=== PATIENT | female | born 1965 | race Caucasian/White ===

== ENCOUNTER → 2020-08-26 | Outpatient (CLI) | payer BC ==
[2020-08-26 09:55] VITALS: BP 148/83; PULSE 92; RESP 20; TEMP 97.8
--- NOTE | 2020-08-26 10:13 | P.GSHP ---
History of Present Illness H&P Date: 08/26/20 Chief Complaint: right breast microclacifications of concern UTANJA Miles is a 53 year old white female seen in consultation for Dr. Braxton regarding a radiographic abnormality of the right breast. She underwent a bilateral screening mammogram on [id number] for which additional views of the right breast [place] [id number]. These reveal a subtle group of microcalcifications in the upper-outer quadrant of the right breast for which stereo biopsy was recommended. She does not feel any lumps masses or nodules in her breast. She is not complaining of the nipple discharge or skin changes. She is not complaining of any trauma or infection in the breast. She has never had any surgery of the breast. Caffeine: coffee 3 cups/day Nicotine: Half a pack per day for 33 years Theophylline: Occasional Hormones: none Family history: Sister: Breast cancer, bilateral from this, in her 60's sister: cancer ? type, of this 54 years old paternal aunt: cancer ? type Hormonal History: menarche: 11 1 miscarriage, first born at 16, breast fed: no menopause: 47 BCP: none hormones: none Surgical history: Patient has had a colonoscopy Medical history: one Social History: smoke: 1/2 PPD/33 years alcohol: none drugs: none - Constitutional Constitutional: Denies chills, Denies fever - EENT Eyes: denies blurred vision, denies pain Ears: deny: decreased hearing, tinnitus Ears, nose, mouth and throat: Reports headache, Denies sore throat - Breasts Breasts: bilateral: as per HPI - Cardiovascular Cardiovascular: Denies chest pain, Denies shortness of breath - Respiratory Comment: smoker - Gastrointestinal Gastrointestinal: Denies abdominal pain, Denies diarrhea, Denies nausea, Denies vomiting - Genitourinary (Female) Genitourinary: Denies dysuria, Denies hematuria - Menstruation Menstruation: Reports postmenopausal - Musculoskeletal Musculoskeletal: Denies myalgias - Integumentary Integumentary: Denies pruritus, Denies rash - Neurological Neurological: Denies numbness, Denies weakness - Psychiatric Psychiatric: Denies anxiety, Denies depression - Endocrine Endocrine: Denies fatigue, Denies weight change - Hematologic/Lymphatic Comment: none - Allergic/Immunologic Allergic/Immunologic: Reports seasonal allergies Past Medical History History of Any Multi-Drug Resistant Organisms: None Reported Smoking Status: Current every day smoker Medications and Allergies Home Medications Medication Instructions Recorded Confirmed Type Albuterol Inhaler [Ventolin Hfa 2 puff INHALATION DIRECTED 08/05/20 08/26/20 History Inhaler] Butalbital/Aspirin/Caffeine 1 tab PO Q4H PRN 08/05/20 08/26/20 History [Yxzlxa-Dptakqd-Mcgzcfmc 50-325-40 mg] Allergies Allergy/AdvReac Type Severity Reaction Status Date / Time No Known Allergies Allergy Verified 08/26/20 09:51 Surgical - Exam Vital Signs Temp Pulse Resp BP Pulse Ox 97.8 F 92 20 148/83 92 L 08/26/20 09:52 08/26/20 09:52 08/26/20 09:52 08/26/20 09:52 08/26/20 09:52 BMI 34.2 - General well developed, well nourished, no distress - Eyes normal ocular movement - ENT no hearing loss - Neck no masses, trachea midline - Respiratory normal expansion, normal respiratory effort, clear to auscultation - Cardiovascular Rhythm: regular Heart Sounds: normal: S1, S2 - Abdomen Abdomen: soft, non tender, no guarding, no rigid, no rebound - Integumentary normal turgor - Neurologic no disoriented, no combative - Musculoskeletal normal gait, normal posture - Psychiatric oriented to time, oriented to person, oriented to place, speech is normal, memory intact breast exam: BRA: 36B inspection: bilateral grade 3 ptosis palpation: right breast : Multiple positional exam fibrocystic changes, no dominant masses or nodules of concern, particularly attention to the area of microcalcifications no palpable abnormality Right axilla: No adenopathy of concern Left breast: Positional exam no dominant masses or nodules of concern, fibrocystic changes Left axilla: No adenopathy of concern Results Mammogram report reviewed Assessment and Plan Assessment: Impression: 1. Radiographic abnormality right breast microcalcifications of concern 2. Strong family history of breast cancer 3. Nicotine dependence Plan: 1. Stereotactic core biopsy right breast 2. Consider genetic counseling, at this time the patient wants to wait 3. Encouraged to stop smoking; she understands and will consider this Stero tactic core biopsy procedure described to the patient. Risk and benefits including but not limited to bleeding, infection, reaction to the anesthetic discussed. Alternatives such as watchful waiting or intraoperative resection discussed but not recommended. If the patient was found to be discordant is possible that open biopsy may be necessary. Patient understands and wishes to proceed. CC; Dr. Braxton encounter 25 minutes, > 50% of time n planning and counselling
== END | disposition home or self-care (01) ==
LOC: WWCWWP 09:38
PROVIDERS: ATTEND Surgery
DX: Z53.9 Procedure and treatment not carried out, unspecified reason (principal)

== ENCOUNTER → 2020-09-01 | Day surgery (SDC) | payer BC ==
--- NOTE | 2020-09-01 08:54 | P.PCN ---
Date of Procedure: 09/01/20 Preoperative Diagnosis: Microcalcifications of concern right breast Postoperative Diagnosis: Same Procedure(s) Performed: Right breast stereotactic core biopsy Anesthesia: local Surgeon: Morenita Carbajal Estimated Blood Loss (ml): 5 Pathology: other (Breast tissue) Condition: stable Disposition: same day Indications for Procedure: Microcalcifications of concern right breast Operative Findings: Radiograph of specimen reveals microcalcifications of concern Description of Procedure: The patient is a 54-year-old white female who was noted on a mammogram to have subtle microcalcification superiorly and centrally right breast and middle to posterior depth for which stereotactic core biopsy was recommended. Risks and benefits of the procedure were discussed with the patient as well as alternatives and she wished to proceed. The patient was taken to the stereotactic core biopsy room. A crime laboratory analyst film was obtained. A lateral to medial approach was utilized. The area of concern was identified and targeted. The breast was prepped using Betadine. 20 mL of 1% lidocaine were used to anesthetize the area of concern. A 9-gauge vacuum- assisted core rotating biopsy needle was driven to the correct coordinates. The needle was fired. A postoperative film was obtained and reviewed showing the needle to be in the correct location. Twelve specimens were obtained. There was noted to be some oozing when the specimens were obtained but the area was well lavaged with control of hemostatis. The radiographic of the specimen revealed the calcifications of concern to be present in the specimen. A secure rigoberto Top-Hat clip was placed. X-ray revealed this to be in the correct location. The patient tolerated the procedure in stable condition. The specimen was sent to pathology. The patient will follow-up with Dr. Negrete next week. CC: Dr. Braxton
[2020-09-01 09:05] VITALS: BP 129/81; PULSE 77; RESP 18; TEMP 98
--- NOTE | 2020-09-03 17:25 | MM ---
EXAMINATION TYPE: MG stereo VAD BX RT DATE OF EXAM: 09/01/2020 COMPARISON: NONE CLINICAL HISTORY: Abnormal calcification TECHNIQUE: Stereotactic guided core biopsy of right breast. FINDINGS: Targeting was provided by radiology. Procedure was performed by surgery. Single specimen is presented. 12 cores were obtained. There are some calcifications within the sample segment. There was placed. IMPRESSION: 1. Successful stereotactic core biopsy. Recommendations: 1. Recommendations are pending pathology results. Pathology Results: High Risk RIGHT BREAST, STEREOTACTIC CORE BIOPSY: Lobular neoplasia (ALH/LCIS) in a background of proliferative fibrocystic changes including sclerosing adenosis with calcifications, moderate usual type ductal hyperplasia, fibrosis, cysts, apocrine metaplasia and columnar cell hyperplasia. Intraductal papilloma. See note. Recommendation Surgical consult of the right breast. JR
== END ==
LOC: RADMAMWWP 06:54
PROVIDERS: ATTEND Surgery
DX: D05.01 Lobular carcinoma in situ of right breast (principal); D24.1 Benign neoplasm of right breast; N60.11 Diffuse cystic mastopathy of right breast; N60.21 Fibroadenosis of right breast; N60.81 Other benign mammary dysplasias of right breast
CPT/HCPCS: 88305; 88342; 88341; 19081; A4648; J2001

== ENCOUNTER → 2020-09-08 | Outpatient (CLI) | payer BC ==
[2020-09-08 11:06] VITALS: BP 128/83; PULSE 89; RESP 18; TEMP 98
--- NOTE | 2020-09-08 11:33 | P.PN ---
Subjective Progress Note Date: 09/08/20 Principal diagnosis: Atypical lobular hyperplasia right breast on stereo biopsy Ginger is a 53 year old white female seen in consultation for Dr. Braxton regarding a radiographic abnormality of the right breast. She underwent a bilateral screening mammogram on [id number] for which additional views of the right breast [place] [id number]. These reveal a subtle group of microcalcifications in the upper-outer quadrant of the right breast for which stereo biopsy was recommended. She does not feel any lumps masses or nodules in her breast. She is not complaining of the nipple discharge or skin changes. She is not complaining of any trauma or infection in the breast. She has never had any surgery of the breast. She underwent a stereotactic core biopsy and [id number]. Pathology revealed lobular neoplasia, ALH/LCIS, as well as an intraductal papilloma. The patient states she did have discomfort with the procedure and has a small amount of ecchymosis at the site. She is not complaining of any fever or chills. Caffeine: coffee 3 cups/day Nicotine: Half a pack per day for 33 years Theophylline: Occasional Hormones: none Family history: Sister: Breast cancer, bilateral from this, in her 60's sister: cancer ? type, of this 54 years old paternal aunt: cancer ? type Hormonal History: menarche: 11 1 miscarriage, first born at 16, breast fed: no menopause: 47 BCP: none hormones: none Surgical history: Patient has had a colonoscopy Medical history: one Social History: smoke: 1/2 PPD/33 years alcohol: none drugs: none - Constitutional Constitutional: Denies chills, Denies fever - EENT Eyes: denies blurred vision, denies pain Ears: deny: decreased hearing, tinnitus Ears, nose, mouth and throat: Reports headache, Denies sore throat - Breasts Breasts: bilateral: as per HPI - Cardiovascular Cardiovascular: Denies chest pain, Denies shortness of breath - Respiratory Comment: smoker - Gastrointestinal Gastrointestinal: Denies abdominal pain, Denies diarrhea, Denies nausea, Denies vomiting - Genitourinary (Female) Genitourinary: Denies dysuria, Denies hematuria - Menstruation Menstruation: Reports postmenopausal - Musculoskeletal Musculoskeletal: Denies myalgias - Integumentary Integumentary: Denies pruritus, Denies rash - Neurological Neurological: Denies numbness, Denies weakness - Psychiatric Psychiatric: Denies anxiety, Denies depression - Endocrine Endocrine: Denies fatigue, Denies weight change - Hematologic/Lymphatic Comment: none - Allergic/Immunologic Allergic/Immunologic: Reports seasonal allergies Objective - Vital Signs Vital signs: Vital Signs Temp 98.0 F 09/08/20 11:02 Pulse 89 09/08/20 11:02 Resp 18 09/08/20 11:02 BP 128/83 09/08/20 11:02 Pulse Ox 94 L 09/08/20 11:02 Intake & Output 09/07/20 09/08/20 09/08/20 18:59 06:59 18:59 Weight 76.204 kg - Exam BMI 31.7 - Constitutional General appearance: Present: obese - EENT Eyes: Present: EOMI ENT: Present: hearing grossly normal - Neck Neck: Present: normal ROM - Respiratory Details: decreased breath sounds at bases - Cardiovascular Rhythm: regular Heart sounds: normal: S1, S2 - Gastrointestinal General gastrointestinal: Present: soft - Integumentary Integumentary Comment(s): Biopsy site slight ecchymosis clean and dry right breast Integumentary: Present: normal turgor - Musculoskeletal Musculoskeletal: Present: gait normal - Psychiatric Psychiatric: Present: A&O x's 3, appropriate affect Assessment and Plan Assessment: Impression: 1. Stereotactic core biopsy right breast revealing some atypical lobular hyperplasia/ductal papilloma 2. COPD Plan: 1. needle Localization excisional lumpectomy area of atypical hyperplasia right breast/probable onco-plastic tissue transfer 2. Medical clearance secondary to COPD CC: Dr. Braxton encounter 15 minutes, > 50% of time in planning and counselling
== END | disposition home or self-care (01) ==
LOC: WWCWWP 10:33
PROVIDERS: ATTEND Surgery
DX: Z53.9 Procedure and treatment not carried out, unspecified reason (principal)

== ENCOUNTER → 2020-10-24 | Outpatient (CLI) | payer BC ==
[2020-10-24 10:27] VITALS: BP 135/81; PULSE 83; RESP 18; TEMP 98
--- NOTE | 2020-10-24 10:39 | P.PN ---
Subjective Progress Note Date: 10/24/20 Principal diagnosis: right breast Atypical lobular hyperplasia/intraductal papilloma Atypical lobular hyperplasia right breast on stereo biopsy Ginger is a 53 year old white female seen in consultation for Dr. Braxton regarding a radiographic abnormality of the right breast. She underwent a bilateral screening mammogram on [id number] for which additional views of the right breast [place] [address]. These reveal a subtle group of microcalcifications in the upper-outer quadrant of the right breast for which stereo biopsy was recommended. She does not feel any lumps masses or nodules in her breast. She is not complaining of the nipple discharge or skin changes. She is not complaining of any trauma or infection in the breast. She has never had any surgery of the breast. She underwent a stereotactic core biopsy and [id number]. Pathology revealed lobular neoplasia, ALH/LCIS, as well as an intraductal papilloma. The patient states she did have discomfort with the procedure and has a small amount of ecchymosis at the site. She is not complaining of any fever or chills. Caffeine: coffee 3 cups/day Nicotine: Half a pack per day for 33 years Theophylline: Occasional Hormones: none Family history: Sister: Breast cancer, bilateral from this, in her 60's sister: cancer ? type, of this 54 years old paternal aunt: cancer ? type Hormonal History: menarche: 11 1 miscarriage, first born at 16, breast fed: no menopause: 47 BCP: none hormones: none Surgical history: Patient has had a colonoscopy Medical history: one Social History: smoke: 1/2 PPD/33 years alcohol: none drugs: none - Constitutional Constitutional: Denies chills, Denies fever - EENT Eyes: denies blurred vision, denies pain Ears: deny: decreased hearing, tinnitus Ears, nose, mouth and throat: Reports headache, Denies sore throat - Breasts Breasts: bilateral: as per HPI - Cardiovascular Cardiovascular: Denies chest pain, Denies shortness of breath - Respiratory Comment: smoker - Gastrointestinal Gastrointestinal: Denies abdominal pain, Denies diarrhea, Denies nausea, Denies vomiting - Genitourinary (Female) Genitourinary: Denies dysuria, Denies hematuria - Menstruation Menstruation: Reports postmenopausal - Musculoskeletal Musculoskeletal: Denies myalgias - Integumentary Integumentary: Denies pruritus, Denies rash - Neurological Neurological: Denies numbness, Denies weakness - Psychiatric Psychiatric: Denies anxiety, Denies depression - Endocrine Endocrine: Denies fatigue, Denies weight change - Hematologic/Lymphatic Comment: none - Allergic/Immunologic Allergic/Immunologic: Reports seasonal allergies Objective - Vital Signs Vital signs: Vital Signs Temp 98.0 F 10/24/20 10:24 Pulse 83 10/24/20 10:24 Resp 18 10/24/20 10:24 BP 135/81 10/24/20 10:24 Pulse Ox 96 10/24/20 10:24 Intake & Output 10/23/20 10/24/20 10/24/20 18:59 06:59 18:59 Weight 82.554 kg - Exam BMI 33.3 - Constitutional General appearance: Present: cooperative - EENT Eyes: Present: EOMI ENT: Present: hearing grossly normal - Neck Neck: Present: normal ROM - Respiratory Respiratory: bilateral: CTA - Cardiovascular Rhythm: regular Heart sounds: normal: S1, S2 - Gastrointestinal General gastrointestinal: Present: normal bowel sounds, soft - Integumentary Integumentary: Present: normal turgor - Musculoskeletal Musculoskeletal: Present: gait normal - Psychiatric Psychiatric: Present: A&O x's 3, appropriate affect, intact judgment & insight - Additional findings Additional findings: breast exam: BRA: 36B Inspection: Grade 3 ptosis Palpation: Right breast: Multi-positional exam fibrocystic changes, no dominant masses or nodules of concern, the patient post stereotactic core biopsy no echymosis, ,no infection, no hematoma right axilla: no adenopathy of concern left breast: Multiple positional exam fibrocystic changes, no dominant masses or nodules of concern Assessment and Plan Assessment: Impression: Stereotactic core biopsy right breast revealing some atypical lobular hyperplasia and ductal papilloma COPD Plan: Needle localization excisional lumpectomy area of atypical hyperplasia and intraductal papilloma, possible bronchoplasty tissue transfer Medical clearance secondary to COPD CC: Dr. Braxton encounter 15 minutes time spent in reviewing medical records, physical exam, and counselling
== END | disposition home or self-care (01) ==
LOC: WWCWWP 10:14
PROVIDERS: ATTEND Surgery
DX: Z53.9 Procedure and treatment not carried out, unspecified reason (principal)

== ENCOUNTER 2020-11-22 08:38 | Day surgery (SDC) | payer BC ==
[2020-11-16 09:52] VITALS: BMI 34.2
--- NOTE | 2020-11-18 17:24 | P.PN ---
Subjective Progress Note Date: 11/18/20 Principal diagnosis: Atypical lobular hyperplasia, intraductal papilloma right breast Atypical lobular hyperplasia/intraductal papilloma Atypical lobular hyperplasia right breast on stereo biopsy Ginger is a 53 year old white female seen in consultation for Dr. Braxton regarding a radiographic abnormality of the right breast. She underwent a bilateral screening mammogram on [id number] for which additional views of the right breast were [place] [id number]. These reveal a subtle group of microcalcifications in the upper-outer quadrant of the right breast for which stereo biopsy was recommended. She does not feel any lumps masses or nodules in her breast. She is not complaining of the nipple discharge or skin changes. She is not complaining of any trauma or infection in the breast. She has never had any surgery of the breast. She underwent a stereotactic core biopsy on 600652. Pathology revealed lobular neoplasia, ALH/LCIS, as well as an intraductal papilloma. The patient states she did have discomfort with the procedure and has a small amount of ecchymosis at the site. She is not complaining of any fever or chills. Caffeine: coffee 3 cups/day Nicotine: Half a pack per day for 33 years Theophylline: Occasional Hormones: none Family history: Sister: Breast cancer, bilateral from this, in her 60's sister: cancer ? type, of this 54 years old paternal aunt: cancer ? type Hormonal History: menarche: 11 1 miscarriage, first born at 16, breast fed: no menopause: 47 BCP: none hormones: none Surgical history: Patient has had a colonoscopy Medical history: one Social History: smoke: 1/2 PPD/33 years alcohol: none drugs: none - Constitutional Constitutional: Denies chills, Denies fever - EENT Eyes: denies blurred vision, denies pain Ears: deny: decreased hearing, tinnitus Ears, nose, mouth and throat: Reports headache, Denies sore throat - Breasts Breasts: bilateral: as per HPI - Cardiovascular Cardiovascular: Denies chest pain, Denies shortness of breath - Respiratory Comment: smoker - Gastrointestinal Gastrointestinal: Denies abdominal pain, Denies diarrhea, Denies nausea, Denies vomiting - Genitourinary (Female) Genitourinary: Denies dysuria, Denies hematuria - Menstruation Menstruation: Reports postmenopausal - Musculoskeletal Musculoskeletal: Denies myalgias - Integumentary Integumentary: Denies pruritus, Denies rash - Neurological Neurological: Denies numbness, Denies weakness - Psychiatric Psychiatric: Denies anxiety, Denies depression - Endocrine Endocrine: Denies fatigue, Denies weight change - Hematologic/Lymphatic Comment: none - Allergic/Immunologic Allergic/Immunologic: Reports seasonal allergies Objective - Exam BMI 34.2 - Constitutional General appearance: Present: average body habitus - EENT Eyes: Present: EOMI ENT: Present: hearing grossly normal - Neck Neck: Present: normal ROM - Respiratory Respiratory: bilateral: CTA - Cardiovascular Rhythm: regular Heart sounds: normal: S1, S2 - Gastrointestinal General gastrointestinal: Present: soft - Integumentary Integumentary: Present: normal turgor - Musculoskeletal Musculoskeletal: Present: gait normal - Psychiatric Psychiatric: Present: A&O x's 3, appropriate affect, intact judgment & insight - Additional findings Additional findings: Breast Exam: BRA: 36B Inspection: Grade 3 ptosis Palpation: Right breast: Multi-positional exam fibrocystic changes, no dominant masses or nodules of concern, the patient's status posterior core biopsy no ecchymosis, no infection, no hematoma Right axilla: No adenopathy of concern Left breast: Multi-positional exam fibrocystic changes no dominant masses or nodules of concern Assessment and Plan Assessment: Impression: Zyrtec to core biopsy right breast revealing atypical lobular hyperplasia and ductal papilloma COPD Plan: Needle localization excisional lumpectomy area of atypical hyperplasia and intraductal papilloma Possible onco-plastic tissue transfer medical clearance 2ndary to COPD DR. Braxton
[~2020-11-22 08:38] MED LIST: DEXAMETHASONE SOD PHOSPHATE 4 MG/ML 1 ML VIAL IV ONE; HEPARIN SODIUM,PORCINE 5,000 UNIT/ML 1 ML VIAL SQ PRN; LACTATED RINGERS 1,000 ML IV SCH; LIDOCAINE 1% (10MG/ML) FOR IV START INTRADERMA PRN; ONDANSETRON 4 MG/2 ML VIAL IVP ONE; Pre Op ABX Message 1 EACH MISC MISCELLANE ONE
[2020-11-22] MEDS ORDERED: ALPRAZolam 0.5 MG TAB ONE (08:58)
[2020-11-22] MEDS ORDERED: LIDOCAINE 1% INJ 10MG/ML (20 ML MDV) SQ ONE ×3 (10:31→12:20)
[2020-11-22] MEDS ORDERED: SUCCINYLCHOLINE CHLORIDE 100 MG/5 ML SYR IV ONE (11:07)
[2020-11-22] MEDS ORDERED: PHENYLEPHRINE-0.9% NACL SYG 1,000 MCG/10 ML SYRINGE ONE (11:07)
[2020-11-22] MEDS ORDERED: PROPOFOL 10 MG/ML 20 ML VIAL IV ONE (11:07)
[2020-11-22] MEDS ORDERED: MIDAZOLAM 2 MG/2 ML VIAL ONE (11:07)
[2020-11-22] MEDS ORDERED: LIDOCAINE 1% INJ 10MG/ML (20 ML MDV) ONE (11:07)
[2020-11-22] MEDS ORDERED: fentaNYL (PF) 50 MCG/ML 2 ML AMP ONE (11:07)
[2020-11-22] MEDS ORDERED: LACTATED RINGERS 1,000 ML IV ONE (12:24)
--- NOTE | 2020-11-22 12:30 | P.OP ---
Date of Procedure: 11/22/20 Preoperative Diagnosis: Atypical lobular hyperplasia, intraductal papilloma on core biopsy Postoperative Diagnosis: Same Procedure(s) Performed: Localization, lumpectomy, onco-plastic tissue transfer, total tissue transferred 49.25 cm Anesthesia: CRISTALA Surgeon: Morenita Carbajal Estimated Blood Loss (ml): 7 IV fluids (ml): 900 Pathology: other (breast tissue) Condition: stable Disposition: same day Indications for Procedure: Atypical lobular hyperplasia, intraductal papilloma Operative Findings: Fibrofatty breast tissue Description of Procedure: The patient is a 55-year-old white female status post core biopsy revealing atypical lobular hyperplasia and intraductal papilloma. She was recommended to undergo a needle local excisional biopsy in the operating room. Following needle localization in the radiology department she was brought to the operative suite. Following induction of general anesthesia the right breast was prepped and draped in a sterile fashion. An incision was made and carried down to the shaft of the needle. This was followed to the tip of the needle and surrounding tissue was excised. The specimen was 6.5 x 4.5 cm in size. The specimen was painted for orientation. Radiograph of the specimen revealed the area of concern had been removed. After we were assured that hemostasis was attained, superior and inferior pillars were mobilized. The superior patellar was mobilized 5 cm x 2 cm for 10 cm, the inferior patellar was mobilized 5 cm x 2 cm for 10 cm. The total tissue mobilization was 49.25 cm. The cavity was marked using titanium clips. The posterior dissection was down to the chest wall. Due to progressive tissue brought together using 3-0 Vicryl sutures. Subcutaneous tissue was closed using 3-0 Vicryl suture. The skin was closed using 4-0 Monocryl. Surgical glue was applied. The patient tolerated the procedure in stable condition. All instrument and sponge counts were correct at the end of the case.
--- NOTE | 2020-11-22 12:32 | P.DS ---
Providers Attending physician: Morenita Carbajal Primary care physician: Nguyen Braxton Plan - Discharge Summary Discharge Rx Participant: Yes New Discharge Prescriptions: No Action Butalbital/Aspirin/Caffeine [Vwtjoq-Iudtauz-Ubraeioh 50-325-40 mg] 1 tab PO Q4H PRN PRN Reason: Migraine Headache Albuterol Inhaler [Ventolin Hfa Inhaler] 2 puff INHALATION DIRECTED Metoprolol Tartrate [Lopressor] 50 mg PO QAM Celecoxib [CeleBREX] 200 mg PO DAILY Fluticasone/Umeclidin/Vilanter [Trelegy Ellipta 100-62.5-25] 1 inhalation INHALATION DIRECTED Discharge Medication List Albuterol Inhaler [Ventolin Hfa Inhaler] 2 puff INHALATION DIRECTED 08/05/20 [History] Butalbital/Aspirin/Caffeine [Ikzwui-Fiebnwi-Skdzprbk 50-325-40 mg] 1 tab PO Q4H PRN 08/05/20 [History] Celecoxib [CeleBREX] 200 mg PO DAILY 11/16/20 [History] Fluticasone/Umeclidin/Vilanter [Trelegy Ellipta 100-62.5-25] 1 inhalation INHALATION DIRECTED 11/16/20 [History] Metoprolol Tartrate [Lopressor] 50 mg PO QAM 11/16/20 [History] Follow up Appointment(s)/Referral(s): Morenita Carbajal MD [STAFF PHYSICIAN] - 1 Week Activity/Diet/Wound Care/Special Instructions: Follow-up Dr. Negrete [address] for 24 hours from discharge if taking narcotic pain medication wear bra at all times May shower after 48 hours Discharge Disposition: HOME SELF-CARE
[2020-11-22 12:56] VITALS: TEMP 97
[2020-11-22] MEDS ORDERED: HYDROmorphone 0.5 MG/0.5 ML SYRINGE IVP ONE (13:02)
[2020-11-22 13:46] VITALS: RESP 16
[2020-11-22] MEDS ORDERED: HYDROcodone/APAP 5-325MG 1 EACH TAB ONE (13:50)
[2020-11-22] MEDS ORDERED: HYDROcodone/APAP 5-325MG 1 EACH TAB PO ONE (13:51)
[2020-11-22 14:11] VITALS: BP 121/79; PULSE 85
--- NOTE | 2020-11-22 17:56 | MM ---
EXAMINATION TYPE: MG pre op needle loc RT DATE OF EXAM: 11/22/2020 COMPARISON: NONE CLINICAL HISTORY: Previous abnormal mammogram, abnormal stereotactic core biopsy, high-risk lesion TECHNIQUE: Needle localization with wire placement and surgical excision of area of concern in the right breast. FINDINGS: The procedure of needle localization with wire placement for surgical excision was explained to the patient. Risk, benefits, and alternatives were discussed. An informed consent was then obtained. A timeout was performed. The overlying skin was prepped and draped in usual sterile fashion. Lidocaine 1% was used as anesthetic into the skin and subcutaneous tissue up to the level of area of concern. A 5 cm needle was used. This was placed via a medial approach under mammographic guidance. Subsequent 90 degrees mammogram show the needle to be in satisfactory position relative to the targeted area. The wire was placed through the needle and the needle was withdrawn. The wire was fixed to patient's skin. Images were marked for surgeon. Images and replacement were discussed with referring surgeon in person. The patient tolerated the procedure well without any immediate complication. Specimen: The wire and the targeted core marker are identified within the specimen mammogram. IMPRESSION: 1. Successful wire localization and excision. Recommendations: 1. Recommendations are pending pathology results. 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 Background proliferative fibrocystic changes with calcifications. See Surgical Pathology Cancer Case Summary and Comment. Recommendation Surgical consult of the right breast. JR
== END 2020-11-22 14:36 | disposition home or self-care (01) ==
LOC: OR 08:38
PROVIDERS: ATTEND Surgery
DX: D05.11 Intraductal carcinoma in situ of right breast (principal); R92.1 Mammographic calcification found on diagnostic imaging of breast; I10 Essential (primary) hypertension; F17.210 Nicotine dependence, cigarettes, uncomplicated; J44.9 Chronic obstructive pulmonary disease, unspecified; K21.9 Gastro-esophageal reflux disease without esophagitis; Z98.890 Other specified postprocedural states; Z97.2 Presence of dental prosthetic device (complete) (partial); E66.9 Obesity, unspecified; Z68.34 Body mass index [BMI] 34.0-34.9, adult; Z79.82 Long term (current) use of aspirin; Z79.899 Other long term (current) drug therapy
CPT/HCPCS: 19301; 88342; 88307; 88341; 76098; J2250; J1644; J1100; J2405; J2001; J3010; J2370; J0330; J2704; J1170

== ENCOUNTER → 2020-12-01 | Outpatient (CLI) | payer BC ==
[2020-12-01 12:18] VITALS: BP 141/84; PULSE 90; RESP 18; TEMP 98.4
--- NOTE | 2020-12-01 12:54 | P.PN ---
Progress Note - Text Progress Note Date: 12/01/20 Ginger is a 55-year-old white female status post needle local excisional biopsy of an area of atypia in the right breast and 3to21. Pathology revealed multifocal low-grade DCIS with focal lobular extension, the margins were negative. The closest margin was 3 mm from the black inked anterior margin. The radiographs were reviewed with the radiologist and it was noted that the margins were negative. In the area was felt to be completely excised. Family history: Sister with bilateral breast cancer in 60's Sister. with cancer unknown primary Sister: skin cancer Physical exam: lungs: clear heart: RRR incision: clean and dry Impression: 1. 3 mm focus of DCIS, completely excised Plan: 1. consider genetic testing 2. medical oncology appointment 3. radiation oncology 4. follow up here in 3 months CC: Dr. Braxton
== END ==
LOC: WWCWWP 12:05
PROVIDERS: ATTEND Surgery
DX: C50.911 Malignant neoplasm of unspecified site of right female breast (principal); Z98.890 Other specified postprocedural states

== ENCOUNTER → 2021-01-06 | Outpatient (CLI) | payer BC ==
--- NOTE | 2021-01-06 16:31 | CT ---
EXAMINATION TYPE: CT chest wo/w con DATE OF EXAM: 01/06/2021 COMPARISON: None HISTORY: chest mass, hx of breast ca CT DLP: 1093 mGycm, Automated exposure control for dose reduction was used. CONTRAST: Performed injected with 100 mL of Isovue 300. TECHNIQUE: Axial images were obtained at 5 mm thick sections. Reconstructed images are reviewed on [employer] computer in the coronal plane. FINDINGS: Portion of the thyroid visualized is prominent There is a 3.2 x 2.8 cm mass within the superior anterior mediastinum. Series 3 image 18. This may christina ve some vague enhancement. Small lymph nodes are within the pretracheal space. No enlarged mediastinal or hilar adenopathy is evident. A few axillary lymph nodes are present bilat erally. The ascending aorta diameter at the level of the main pulmonary artery is 3. cm. The main pu lmonary artery diameter at the bifurcation is 2.4 cm. Minimal coronary artery calcification is presen t. Limited CT sections are obtained through the upper abdomen. Abdomen is essentially unremarkable. IMPRESSIONS: 1. Solitary anterior superior mediastinal mass measuring 3.2 x 2.8 cm. Additional workup with PET CT is recommended. 2. Scattered small mediastinal lymph nodes.
== END | disposition home or self-care (01) ==
LOC: RADCTMAIN 11:35
PROVIDERS: ATTEND Radiology Radiation Oncology
DX: J98.59 Other diseases of mediastinum, not elsewhere classified (principal); R59.0 Localized enlarged lymph nodes
CPT/HCPCS: 71270; Q9967

== ENCOUNTER → 2021-01-24 | Outpatient (CLI) | payer BC ==
--- NOTE | 2021-01-25 09:32 | BD ---
EXAMINATION TYPE: Axial Bone Density DATE OF EXAM: 01/24/2021 COMPARISON: NONE CLINICAL HISTORY: Height: 5 FT 1/2 IN Weight: 184 FRAX RISK QUESTIONS: Alcohol (3 or more units per day): NO Family History (Parent hip fracture): NO Glucocorticoids (More than 3mos): NO (Ex: prednisone, prednisolone, methylprednisolone, dexamethasone, and hydrocortisone). History of Fracture in Adulthood: YES Secondary Osteoporosis: 1. Type 1 Diabetes: NO 2. Hyperthyroidism: NO 3. Menopause before 45: AROUND AGE 46 4. Malnutrition: NO 5. Chronic liver disease: NO Rheumatoid Arthritis: UNSURE Current Tobacco Use: YES RISK FACTORS HISTORY OF: Surgery to Spine/Hip(right/left)/Wrist (right/left): NO Family History of Osteoporosis: NO Active: YES Diet low in dairy products/other sources of calcium: NO Postmenopausal woman: AROUND AGE 46 Take estrogen and/or progesterone medications: NO Lost more than 2 inches in height since high school: NO MEDICATIONS: Additional Medications: HORMONE WINTER, , MIGRAINE MEDS, METOPROLOL, BUTALAB-ACETAMIN, CELECOXLB, E [place] NITRATE CREAM, ALBUTEROL Additional History: BREAST CANCER 2019 RADIATION EXAM MEASUREMENTS: Bone mineral densitometry was performed using the [employer] System. Bone mineral density as measured about the Lumbar spine is: ----- L1-L4(G/cm2): 1.094 T Score Values are as follows: ----- L2: -1.6 ----- L3: -0.3 ----- L4: -0.2 ----- L1-L4: -0.7 BASELINE Bone mineral density about the R hip (g/cm2) 0.929: Bone mineral density about the L hip (g/cm2): 0.903 T Score values are as follows: -----R Neck: -0.8 -----L Neck: -1.0 -----R Total: 0.0 -----L Total: 0.1 BASELINE IMPRESSION: No evidence for osteoporosis or osteopenia. NOTE: T-SCORE=SD OF THE YOUNG ADULT MEAN.
== END | disposition home or self-care (01) ==
LOC: RADBDWWP 07:13
PROVIDERS: ATTEND Internal Medicine Hematology & Oncology
DX: Z85.3 Personal history of malignant neoplasm of breast (principal)
CPT/HCPCS: 77080

== ENCOUNTER → 2021-03-16 | Outpatient (CLI) | payer BC ==
[2021-03-16 11:59] VITALS: BP 115/73; PULSE 91; RESP 18; TEMP 98.1
--- NOTE | 2021-03-16 12:05 | P.PN ---
Subjective Progress Note Date: 03/16/21 Principal diagnosis: DCIS Atypical lobular hyperplasia right breast on stereo biopsy Ginger is a 55 year old white female seen in consultation for Dr. Braxton regarding a radiographic abnormality of the right breast. She underwent a bilateral screening mammogram on 527920 for which additional views of the right breast [place]. [place] [address]. These reveal a subtle group of microcalcifications in the upper-outer quadrant of the right [facility]. She does not feel any lumps masses or nodules in her breast. She is not complaining of the nipple discharge or skin changes. She is not complaining of any trauma or infection in the breast. She has never had any surgery of the breast. She underwent a stereotactic core biopsy and [id number]. Pathology revealed lobular neoplasia, ALH/LCIS, as well as an intraductal papilloma. She subsequently underwent right breast needle localization on o21 which revealed multifocal low-grade ductal carcinoma in situ her margins were negative. She then underwent radiation therapy and completed radiation therapy. In the course of radiation therapy she was diagnosed with a thymoma. She underwent a resection of the thymoma on February 14. This was done at [facility], via a robotic procedure. She was told this was cancer. She is recommended to undergo radiation therapy for this. She was told she did not need chemotherapy. She is taking aromison, she is not having any symptoms related to this. Caffeine: coffee 3 cups/day Nicotine: Half a pack per day for 33 years Theophylline: Occasional Hormones: none Family history: Sister: Breast cancer, bilateral from this, in her 60's sister: cancer ? type, of this 54 years old paternal aunt: cancer ? type Hormonal History: menarche: 11 1 miscarriage, first born at 16, breast fed: no menopause: 47 BCP: none hormones: none Surgical history: Patient has had a colonoscopy Medical history: thymoma Social History: smoke: 1/2 PPD/33 years alcohol: none drugs: none - Constitutional Constitutional: Denies chills, Denies fever - EENT Eyes: denies blurred vision, denies pain Ears: deny: decreased hearing, tinnitus Ears, nose, mouth and throat: Reports headache, Denies sore throat - Breasts Breasts: bilateral: as per HPI - Cardiovascular Cardiovascular: Denies chest pain, Denies shortness of breath - Respiratory Comment: smoker - Gastrointestinal Gastrointestinal: Denies abdominal pain, Denies diarrhea, Denies nausea, Denies vomiting - Genitourinary (Female) Genitourinary: Denies dysuria, Denies hematuria - Menstruation Menstruation: Reports postmenopausal - Musculoskeletal Musculoskeletal: Denies myalgias - Integumentary Integumentary: Denies pruritus, Denies rash - Neurological Neurological: Denies numbness, Denies weakness - Psychiatric Psychiatric: Denies anxiety, Denies depression - Endocrine Endocrine: Denies fatigue, Denies weight change - Hematologic/Lymphatic Comment: none - Allergic/Immunologic Allergic/Immunologic: Reports seasonal allergies Objective - Vital Signs Vital signs: Intake & Output 03/15/21 03/16/21 03/16/21 18:59 06:59 18:59 Weight 84.368 kg - Exam BMI 35.1 - Constitutional General appearance: Present: cooperative - EENT Eyes: Present: EOMI ENT: Present: hearing grossly normal - Neck Neck: Present: normal ROM - Respiratory Respiratory: bilateral: CTA - Cardiovascular Rhythm: regular Heart sounds: normal: S1, S2 - Integumentary Integumentary: Present: normal turgor - Musculoskeletal Musculoskeletal: Present: gait normal - Psychiatric Psychiatric: Present: A&O x's 3, appropriate affect, intact judgment & insight - Additional findings Additional findings: Breast examination: BRA: XL Inspection: Well-healed scar right breast from prior surgery, bilateral grade 2 ptosis Palpation: Right breast: Multi-positional exam fibrocystic changes, no dominant masses or nodules of concern Right axilla: No adenopathy of concern Left breast: Multi-positional exam no dominant masses or nodules of concern Left axilla: No adenopathy of concern In the lateral left side wall there are 3 incisions from her prior robotic thymectomy Assessment and Plan Assessment: Impression: 1. thymoma resected January 2021 2. no evidence of recurrent right breast cancer Plan: 1. Continue Aromasin 2. Radiation for thymoma as per radiation oncology 3. Repeat right breast mammogram in 3 months with physician exam at that time 4. Patient follow up sooner if any questions or concerns Cc: Dr. Braxton
== END ==
LOC: WWCWWP 11:28
PROVIDERS: ATTEND Surgery
DX: Z08 Encounter for follow-up examination after completed treatment for malignant neoplasm (principal); F17.210 Nicotine dependence, cigarettes, uncomplicated; Z98.890 Other specified postprocedural states; Z79.811 Long term (current) use of aromatase inhibitors; Z85.3 Personal history of malignant neoplasm of breast

== ENCOUNTER → 2021-04-04 | Outpatient (CLI) | payer BC ==
--- NOTE | 2021-04-04 11:46 | XR ---
EXAMINATION TYPE: XR chest 2V DATE OF EXAM: 04/04/2021 COMPARISON: Chest x-ray 02/22/2011, CT 01/06/2021 HISTORY: Pleurisy, Hypoxemia Eval, Pneumonia, Pleural Effus TECHNIQUE: Frontal and lateral views of the chest are obtained. FINDINGS: There is abnormal attenuation seen at the level of the left heart border, lingula. Surgica l clips present right breast. There are prominent lung volumes with flattening the hemidiaphragms as on prior exam. No evident pneumothorax or pleural effusion. Cardiac mediastinal sweat felt likely to be stable accounting for rotation, technique. Aorta is dense. Question overlying artifact, possible d ensity involving the left metaphyseal proximal humerus The cardiac silhouette size is within normal l imits. The osseous structures are intact. IMPRESSION: Lingular pneumonia, follow-up to resolution, patient does show a prominent epicardial fa t pad on CT which could account for some of the density noted at this level. There is underlying emph ysema. Additional nonspecific findings above.
[2021-04-04 12:15] LABS: ALT 22 U/L (4-34); AST 20 U/L (14-36); African American GFR (CKD) >90 (>60 ml/min/1.73 sqM); Albumin 4.3 g/dL (3.5-5.0); Alkaline Phosphatase 87 U/L (38-126); Anion Gap 7 mmol/L; Blood Urea Nitrogen 18 mg/dL (7-17); C Reactive Protein 0.9 mg/dL (<1.0); Calcium 9.8 mg/dL (8.4-10.2); Carbon Dioxide 28 mmol/L (22-30); Chloride 108 mmol/L (98-107); Glucose 93 mg/dL (74-99); Non-African American GFR(CKD) 84 (>60 ml/min/1.73 sqM); Potassium 4.4 mmol/L (3.5-5.1); Sodium 143 mmol/L (137-145); Total Bilirubin 0.3 mg/dL (0.2-1.3); Total Protein 6.9 g/dL (6.3-8.2)
[2021-04-04 12:17] LABS: Basophils # (A) 0.1 k/uL (0-0.2); Basophils % (A) 1 %; Eosinophils # (A) 0.5 k/uL (0-0.7); Eosinophils % (A) 6 %; HCT 39.9 % (34.0-46.0); HGB 13.4 gm/dL (11.4-16.0); Lymphocytes # (A) 1.4 k/uL (1.0-4.8); Lymphocytes % (A) 18 %; MCH 29.3 pg (25.0-35.0); MCHC 33.5 g/dL (31.0-37.0); MCV 87.6 fL (80.0-100.0); Mean Platelet Volume 7.6; Monocytes # (A) 0.5 k/uL (0-1.0); Monocytes % (A) 6 %; Neutrophils # (A) 5.2 k/uL (1.3-7.7); Neutrophils % (A) 68 %; Platelet Count 235 k/uL (150-450); RBC 4.55 m/uL (3.80-5.40); RDW 13.3 % (11.5-15.5); WBC 7.7 k/uL (3.8-10.6)
[2021-04-04 12:29] LABS: T4, Free (Free Thyroxine) 1.29 ng/dL (0.78-2.19)
[2021-04-04 15:55] LABS: Erythrocyte Sedimentation Rate 17 mm/hr (0-20)
[2021-04-05 01:00] LABS: Protein, Total 6.9 g/dL (6.2-8.2)
[2021-04-05 01:13] LABS: Procalcitonin 0.05 ng/mL (0.02-0.09)
[2021-04-06 13:32] LABS: Albumin 4.05 g/dL (3.80-4.90); Gamma Globulin 0.82 g/dL (0.70-1.50)
== END | disposition home or self-care (01) ==
LOC: RADXRMAIN 10:49
PROVIDERS: ATTEND Family Medicine
DX: J18.1 Lobar pneumonia, unspecified organism (principal)
CPT/HCPCS: 71046; 80053; 83880; 84145; 84165; 84439; 84443; 85025; 85652; 86140; 86334

== ENCOUNTER → 2021-05-31 | Outpatient (CLI) | payer BC ==
--- NOTE | 2021-05-31 11:31 | MM ---
Reason for exam: additional evaluation requested from abnormal screening. History: Patient is postmenopausal, has history of breast cancer at age 55, and has history of high-risk lesion on a previous biopsy at age 54. Family history of breast cancer in sister and breast cancer in cousin at age 30. Malignant MG pre op needle loc RT of the right breast, November 22, 2020. Lumpectomy of the right breast, November 22, 2020. High risk MG stereo VAD BX RT of the right breast, September 01, 2020. Taking estrogen. Physical Findings: Nurse did not find any significant physical abnormalities on exam. MG Diagnostic Mammo RT w CAD CC and MLO view(s) were taken of the right breast. The breast tissue is heterogeneously dense. This may lower the sensitivity of mammography. Post lumpectomy and radiation therapy changes right breast. These results were verbally communicated with the patient and result sheet given to the patient on 05/31/21. ASSESSMENT: Benign, BI-RAD 2 RECOMMENDATION: Follow-up diagnostic mammogram of both breasts in 6 months.
== END | disposition home or self-care (01) ==
LOC: RADMAMWWP 10:50
PROVIDERS: ATTEND Surgery
DX: R92.2 Inconclusive mammogram (principal); Z78.0 Asymptomatic menopausal state; Z85.3 Personal history of malignant neoplasm of breast; Z80.3 Family history of malignant neoplasm of breast
CPT/HCPCS: 77065

== ENCOUNTER → 2021-06-09 | Outpatient (CLI) | payer BC ==
[2021-06-09 09:37] VITALS: BP 127/86; PULSE 72; RESP 20; TEMP 98.4
--- NOTE | 2021-06-09 10:06 | P.PN ---
Subjective Progress Note Date: 06/09/21 Principal diagnosis: DCIS. Thymoma DCIS Atypical lobular hyperplasia right breast on stereo biopsy Ginger is a 55 year old white female seen in consultation for Dr. Braxton regarding a radiographic abnormality of the right breast. She underwent a bilateral screening mammogram on for which additional views of the right breast were recommended. These were performed on . These reveal a subtle group of microcalcifications in the upper-outer quadrant of the right breast for which stereo biopsy was recommended. She does not feel any lumps masses or nodules in her breast. She is not complaining of the nipple discharge or skin changes. She is not complaining of any trauma or infection in the breast. She has never had any surgery of the breast. She underwent a stereotactic core biopsy and . Pathology revealed lobular neoplasia, ALH/LCIS, as well as an intraductal papilloma. She subsequently underwent right breast needle localization on 3220 which revealed multifocal low-grade ductal carcinoma in situ her margins were negative. She then underwent radiation therapy and completed radiation therapy. In the course of radiation therapy she was diagnosed with a thymoma. She underwent a resection of the thymoma on February 14. This was done at [facility] in [place], via a robotic procedure. She was told this was cancer. She completed radiation therapy for this that was finished on 05-03-21. She was told she did not need chemotherapy. She is taking aromison, she is not having any symptoms related to this. She had a right breast mammogram performed on 9820 which was benign BIRADS 2 Recent note 06-05-[address] Ramey reviewed Caffeine: coffee 3 cups/day Nicotine: Half a pack per day for 33 years stopped February 13 Theophylline: Occasional Hormones: none Family history: Sister: Breast cancer, bilateral from this, in her 60's sister: cancer ? type, of this 54 years old paternal aunt: cancer ? type Hormonal History: menarche: 11 1 miscarriage, first born at 16, breast fed: no menopause: 47 BCP: none hormones: none Surgical history: Patient has had a colonoscopy Medical history: thymoma oxygen dependant since thymoma resection COPD Social History: smoke: 1/2 PPD/33 years stopped on February 13 alcohol: none drugs: none - Constitutional Constitutional: Denies chills, Denies fever - EENT Eyes: denies blurred vision, denies pain Ears: deny: decreased hearing, tinnitus Ears, nose, mouth and throat: Reports headache, Denies sore throat - Breasts Breasts: bilateral: as per HPI - Cardiovascular Cardiovascular: Denies chest pain, Denies shortness of breath - Respiratory Comment: smoker - Gastrointestinal Gastrointestinal: Denies abdominal pain, Denies diarrhea, Denies nausea, Denies vomiting - Genitourinary (Female) Genitourinary: Denies dysuria, Denies hematuria - Menstruation Menstruation: Reports postmenopausal - Musculoskeletal Musculoskeletal: Denies myalgias - Integumentary Integumentary: Denies pruritus, Denies rash - Neurological Neurological: Denies numbness, Denies weakness - Psychiatric Psychiatric: Denies anxiety, Denies depression - Endocrine Endocrine: Denies fatigue, Denies weight change - Hematologic/Lymphatic Comment: none - Allergic/Immunologic Allergic/Immunologic: Reports seasonal allergies Objective - Vital Signs Vital signs: Vital Signs Temp 98.4 F 06/09/21 09:34 Pulse 72 06/09/21 09:34 Resp 20 06/09/21 09:34 BP 127/86 06/09/21 09:34 Pulse Ox 100 06/09/21 09:34 Intake & Output 06/08/21 06/09/21 06/09/21 18:59 06:59 18:59 Weight 87.997 kg - Exam BMI 36.7 - Constitutional General appearance: Present: cooperative - EENT Eyes: Present: EOMI ENT: Present: hearing grossly normal - Neck Neck: Present: normal ROM - Respiratory Details: using oxygen Respiratory: bilateral: CTA - Cardiovascular Rhythm: regular Heart sounds: normal: S1, S2 - Gastrointestinal General gastrointestinal: Present: soft - Integumentary Integumentary: Present: normal turgor - Musculoskeletal Musculoskeletal: Present: gait normal - Psychiatric Psychiatric: Present: A&O x's 3, appropriate affect, intact judgment & insight - Additional findings Additional findings: Breast Exam: BRA: 36B inspection: Radiation postop changes right breast, grade 2 ptosis bilateral Palpation: Right breast: Postop and radiation changes no dominant masses or nodules of concern on multiple positional exam Right axilla: No adenopathy of concern Left breast: Multiple positional exam fibrocystic changes no dominant masses or nodules of concern Left axilla: No adenopathy of concern Assessment and Plan Assessment: Impression: 1. Patient DCIS right breast status post lumpectomy/radiation therapy/on Aromasin 2. Thymoma resected status post radiation therapy 3. COPD 4. Prior smoker 5. Oxygen dependent Plan: Repeat bilateral mammogram November 2021 Computed tomography scan 6 months to follow thymoma Continue Aromasin Continue follow-up with radiation oncology Follow-up care in 4 months for examination CC: DR. Braxton
== END ==
LOC: WWCWWP 09:25
PROVIDERS: ATTEND Surgery
DX: D05.11 Intraductal carcinoma in situ of right breast (principal); J44.9 Chronic obstructive pulmonary disease, unspecified; Z86.73 Personal history of transient ischemic attack (TIA), and cerebral infarction without residual deficits; Z99.81 Dependence on supplemental oxygen; Z79.811 Long term (current) use of aromatase inhibitors; Z92.3 Personal history of irradiation; Z87.891 Personal history of nicotine dependence

== ENCOUNTER → 2021-06-12 | Outpatient (CLI) | payer BC ==
[2021-06-12 20:32] LABS: Basophils # (A) 0.03 X 10*3/uL (0.00-0.10); Basophils % (A) 0.4 %; Eosinophils # (A) 0.14 X 10*3/uL (0.04-0.35); Eosinophils % (A) 2.1 %; HCT 42.5 % (37.2-46.3); HGB 13.8 g/dL (12.0-15.0); Lymphocytes # (A) 1.08 X 10*3/uL (0.90-5.00); MCH 29.9 pg (27.0-32.0); MCHC 32.5 g/dL (32.0-37.0); Mean Platelet Volume 10.3 fL (9.5-12.2); Monocytes # (A) 0.54 X 10*3/uL (0.20-1.00); Neutrophils # (A) 4.96 X 10*3/uL (1.80-7.70); Neutrophils % (A) 73.2 %; Platelet Count 211 X 10*3/uL (140-440); RBC 4.62 X 10*6/uL (4.10-5.20); RDW 13.4 % (11.5-14.5); WBC 6.77 X 10*3/uL (4.50-10.00)
[2021-06-12 20:46] LABS: African American GFR (CKD) 96.9 (60.0-200.0); Albumin 4.6 g/dL (3.80-4.90); Albumin/Globulin Ratio 1.92 (1.60-3.17); Anion Gap 7.3 mmol/L (4.00-12.00); BUN/Creat Ratio 17.5 Ratio (12.00-20.00); Calcium 10.1 mg/dL (8.7-10.3); Carbon Dioxide 28.7 mmol/L (21.6-31.8); Globulin 2.4 g/dL (1.6-3.3); Non-African American GFR(CKD) 83.6 (60.0-200.0); Potassium 4.6 mmol/L (3.5-5.5); Total Bilirubin 0.4 mg/dL (0.2-1.2)
[2021-06-13 05:11] LABS: Immunoglobulin E 74.1 IU/mL (0.00-114.00)
[2021-06-14 13:20] LABS: Alpha 1 Anti-Trypsin 142 mg/dL (90 - 200)
== END | disposition home or self-care (01) ==
LOC: LABWHC1 11:33
PROVIDERS: ATTEND Family Medicine
DX: E78.2 Mixed hyperlipidemia (principal); J44.9 Chronic obstructive pulmonary disease, unspecified; R09.02 Hypoxemia
CPT/HCPCS: 36415; 80053; 82103; 82104; 82550; 82785; 83880; 84443; 85025; 85379

== ENCOUNTER → 2021-06-27 | Outpatient (CLI) | payer BC | LOC: CPPFTMAIN 08:51 | PROVIDERS: ATTEND Family Medicine | DX: J44.9 Chronic obstructive pulmonary disease, unspecified (principal) | CPT/HCPCS: 94060; 94726; 94729 ==

== ENCOUNTER → 2021-11-24 | Outpatient (CLI) | payer BC ==
--- NOTE | 2021-11-26 14:00 | ECHOF ---
Referral Reason:R06.02 Shortness of breath MEASUREMENTS -------- HEIGHT: 154.9 cm WEIGHT: 89.8 kg BP: 136/83 RVIDd: 2.8 cm (< 3.3) IVSd: 1.3 cm (0.6 - 1.1) LVIDd: 4.4 cm (3.9 - 5.3) LVPWd: 1.3 cm (0.6 - 1.1) IVSs: 1.8 cm LVIDs: 3.1 cm LVPWs: 1.9 cm LA Diam: 3.6 cm (2.7 - 3.8) LAESV Index (A-L): 17.01 ml/m Ao Diam: 2.8 cm (2.0 - 3.7) AV Cusp: 1.7 cm (1.5 - 2.6) MV EXCURSION: 15.488 mm (> 18.000) MV EF SLOPE: 48 mm/s (70 - 150) EPSS: 0.6 cm MV E Lyle: 1.12 m/s MV DecT: 179 ms MV A Lyle: 1.39 m/s MV E/A Ratio: 0.80 AR PHT: 455 ms RAP: 5.00 mmHg RVSP: 34.54 mmHg FINDINGS -------- Sinus rhythm. This was a technically adequate study. The left ventricular size is normal. There is mild concentric left ventricular hypertrophy. Overa ll left ventricular systolic function is normal with, an EF between 60 - 65 %. The right ventricle is normal in size. Normal LA size by volume 22+/-6 ml/m2. The right atrium is normal in size. Interatrial and interventricular septum intact. There is mild aortic regurgitation. Mild mitral regurgitation is present. Mild tricuspid regurgitation present. There is mild pulmonary hypertension. The right ventricular systolic pressure, as measured by Doppler, is 34.54mmHg. The pulmonic valve was not well visualized. The aortic root size is normal. Normal inferior vena cava with normal inspiratory collapse consistent with estimated right atrial pre ssure of 5 mmHg. There is no pericardial effusion. CONCLUSIONS -------- 1. The left ventricular size is normal. 2. There is mild concentric left ventricular hypertrophy. 3. Overall left ventricular systolic function is normal with, an EF between 60 - 65 %. 4. There is mild aortic regurgitation. 5. Mild mitral regurgitation is present. 6. Mild tricuspid regurgitation present. 7. There is mild pulmonary hypertension. 8. The right ventricular systolic pressure, as measured by Doppler, is 34.54mmHg. 9. There is no pericardial effusion. LOGISTICS ENGINEER: Dora Vaz RDCS
== END | disposition home or self-care (01) ==
LOC: RADECHMAIN 12:50
PROVIDERS: ATTEND Family Medicine
DX: I08.3 Combined rheumatic disorders of mitral, aortic and tricuspid valves (principal); I27.20 Pulmonary hypertension, unspecified
CPT/HCPCS: 93306

== ENCOUNTER → 2021-11-27 | Outpatient (CLI) | payer BC ==
[2021-11-27 09:06] LABS: African American GFR (CKD) >90 (>60 ml/min/1.73 sqM); Blood Urea Nitrogen 19 mg/dL (7-17); Non-African American GFR(CKD) >90 (>60 ml/min/1.73 sqM)
--- NOTE | 2021-11-27 10:30 | CT ---
EXAMINATION TYPE: CT chest wo/w con DATE OF EXAM: 11/27/2021 COMPARISON: CT dated 01/06/2021 HISTORY: Intraductal carcinoma in situ of right breast CT DLP: 958 mGycm Automated exposure control for dose reduction was used. TECHNIQUE: CT scan of the chest is performed without and with IV Contrast, patient injected with 100 mL of Isovu e 300. FINDINGS: LUNGS: Multiple bilateral peripheral pulmonary reticulations, subsegmental atelectasis and pleural-ba sed nodularity, most evident seen in the left upper lobe, not appreciated previously. The largest ple ural-based nodule measures 12 mm (image #20, series 4). Another pleural-based nodule measures 8mm (im age #19, series 4). Patent trachea and main bronchi. No pleural effusion. MEDIASTINUM: The previously seen anterior mediastinal solid lesion has markedly decreased in size and being replaced by irregular density demonstrating fluid density within. The residual lesion roughly measures 14 x 21 mm compared to 2.9 x 2.9 cm previously. No progressive or pathologically enlarged hi lar, mediastinal or axillary lymph nodes otherwise. Persistent enlarged thyroid yet homogenous. No gr oss cardiomegaly. Coronary arterial calcifications. No major or central pulmonary embolism. No perica rdial effusion. OTHER: Right breast calcifications. Bulky liver without definite hepatic focal lesion. No aggressive bone lesion. IMPRESSION: 1. Significant interval regression of the previously seen anterior mediastinal lesion/lymph node with residual lesion as described above. No progressive lymphadenopathy in the chest. 2. The above-described new pulmonary findings could be related to an acute inflammatory/infectious pr ocess or post therapeutic changes however early metastatic disease cannot be excluded. Attention on f ollow-up. Further PET scan assessment can be considered. Other incidental findings as described above .
== END | disposition home or self-care (01) ==
LOC: RADCTMAIN 08:05
PROVIDERS: ATTEND Radiology Radiation Oncology
DX: D05.11 Intraductal carcinoma in situ of right breast (principal); C37 Malignant neoplasm of thymus; D15.0 Benign neoplasm of thymus; J44.9 Chronic obstructive pulmonary disease, unspecified; F17.210 Nicotine dependence, cigarettes, uncomplicated
CPT/HCPCS: 82565; 84520; 71270; 36415; Q9967

== ENCOUNTER → 2021-11-28 | Outpatient (CLI) | payer BC ==
--- NOTE | 2021-11-28 10:21 | MM ---
Reason for exam: follow-up at short interval from prior study. Last mammogram was performed 6 months ago. History: Patient is postmenopausal, has history of breast cancer at age 55, and has history of high-risk lesion on a previous biopsy at age 54. Family history of breast cancer in sister and breast cancer in cousin at age 30. Malignant MG pre op needle loc RT of the right breast, November 22, 2020. Lumpectomy of the right breast, November 22, 2020. High risk MG stereo VAD BX RT of the right breast, September 01, 2020. Taking estrogen. Physical Findings: A clinical breast exam by your physician is recommended on an annual basis and results should be correlated with mammographic findings. MG Diagnostic Mammo w CAD PATRICA Bilateral CC and MLO view(s) were taken. ML and spot compression MLO view(s) were taken of the left breast. Prior study comparison: May 31, 2021, right breast MG diagnostic mammo RT w CAD. July 19, 2020, mammogram, performed at [facility]. The breast tissue is heterogeneously dense. This may lower the sensitivity of mammography. Post surgical and post therapy change right breast. A few benign bilateral oil cyst calcifications are redemonstrated. Central posterior left MLO asymmetric density disperses on additional views. These results were verbally communicated with the patient and result sheet given to the patient on 11/28/21. ASSESSMENT: Probably benign, BI-RAD 3 RECOMMENDATION: Follow-up diagnostic mammogram of the right breast in 6 months.
== END | disposition home or self-care (01) ==
LOC: RADMAMWWP 09:22
PROVIDERS: ATTEND Surgery
DX: R92.8 Other abnormal and inconclusive findings on diagnostic imaging of breast (principal); Z85.3 Personal history of malignant neoplasm of breast; Z78.0 Asymptomatic menopausal state; Z80.3 Family history of malignant neoplasm of breast
CPT/HCPCS: 77066

== ENCOUNTER → 2021-12-21 | Outpatient (CLI) | payer BC ==
[2021-12-21 11:24] VITALS: BP 147/84; PULSE 103; RESP 17; TEMP 98.3
--- NOTE | 2021-12-21 12:14 | P.PN ---
Subjective Progress Note Date: 12/21/21 Principal diagnosis: DCIS surveillence; Kecia stage IIb thymoma DCIS Atypical lobular hyperplasia right breast on stereo biopsy Ginger is a 55 year old white female seen in consultation for Dr. Braxton regarding a radiographic abnormality of the right breast. She underwent a bilateral screening mammogram on for which additional views of the right breast were recommended. These were performed on . These reveal a subtle group of microcalcifications in the upper-outer quadrant of the right breast for which stereo biopsy was recommended. She does not feel any lumps masses or nodules in her breast. She is not complaining of the nipple discharge or skin changes. She is not complaining of any trauma or infection in the breast. She has never had any surgery of the breast. She underwent a stereotactic core biopsy and . Pathology revealed lobul ar neoplasia, ALH/LCIS, as well as an intraductal papilloma. She subsequently underwent right breast needle localization on 3220 which revealed multifocal low-grade ductal carcinoma in situ her margins were negative. She then underwent radiation therapy and completed radiation therapy. In the course of radiation therapy she was diagnosed with a thymoma. She underwent a resection of the thymoma on February 14, 2021. This was done at [facility] in [place], via a robotic procedure. She was told this was cancer. She completed radiation for this on 05-03-21. Has been oxygen dependent since that surgery for the thymoma. She was told she did not need chemotherapy for her breast. She is taking aromison, she is not having any symptoms related to this. She had a bilateral mammogram on 11-28-21 stable right breast 6 month follow up, left breast no abnormalities of concern. She is without any lumps masses or nodules in either breast. note from radiation oncology 12-01-21 reviewed 11-27-21 CT scan small residual soft tissue anterior mediastinum 1.5 x 2 cm. Some pleural nodularity along the left lung. This may be posttherapy changes versus infection versus early metastases. Caffeine: coffee 3 cups/day Nicotine: Half a pack per day for 33 years Theophylline: Occasional Hormones: none Family history: Sister: Breast cancer, bilateral from this, in her 60's sister: cancer ? type, of this 54 years old paternal aunt: cancer ? type Hormonal History: menarche: 11 1 miscarriage, first born at 16, breast fed: no menopause: 47 BCP: none hormones: none Surgical history: Patient has had a colonoscopy Medical history: thymoma Social History: smoke: 1/2 PPD/33 years alcohol: none drugs: none - Constitutional Constitutional: Denies chills, Denies fever - EENT Eyes: denies blurred vision, denies pain Ears: deny: decreased hearing, tinnitus Ears, nose, mouth and throat: Reports headache, Denies sore throat - Breasts Breasts: bilateral: as per HPI - Cardiovascular Cardiovascular: Denies chest pain, Denies shortness of breath - Respiratory Comment: smoker - Gastrointestinal Gastrointestinal: Denies abdominal pain, Denies diarrhea, Denies nausea, Denies vomiting - Genitourinary (Female) Genitourinary: Denies dysuria, Denies hematuria - Menstruation Menstruation: Reports postmenopausal - Musculoskeletal Musculoskeletal: Denies myalgias - Integumentary Integumentary: Denies pruritus, Denies rash - Neurological Neurological: Denies numbness, Denies weakness - Psychiatric Psychiatric: Denies anxiety, Denies depression - Endocrine Endocrine: Denies fatigue, Denies weight change - Hematologic/Lymphatic Comment: none - Allergic/Immunologic Allergic/Immunologic: Reports seasonal allergies Objective - Vital Signs Vital signs: Vital Signs Temp 98.3 F 12/21/21 11:21 Pulse 103 H 12/21/21 11:21 Resp 17 12/21/21 11:21 BP 147/84 12/21/21 11:21 Pulse Ox 94 L 12/21/21 11:21 Intake & Output 12/20/21 12/21/21 12/21/21 18:59 06:59 18:59 Weight 89.358 kg - Constitutional General appearance: Present: cooperative - EENT Eyes: Present: EOMI ENT: Present: hearing grossly normal - Neck Neck: Present: normal ROM - Respiratory Respiratory: bilateral: CTA - Cardiovascular Rhythm: regular Heart sounds: normal: S1, S2 - Integumentary Integumentary: Present: normal turgor - Musculoskeletal Musculoskeletal Comment(s): using oxygen Musculoskeletal: Present: gait normal - Psychiatric Psychiatric: Present: A&O x's 3, appropriate affect, intact judgment & insight - Additional findings Additional findings: Breast Exam: BRA: sports bras X large inspection: well healed scar right breast palpation: Breasts: right: Multiple positional exam post radiation and postsurgical changes no dominant masses or nodules of concern no evidence of recurrent disease Right axilla: No adenopathy of concern Left breast: Multiple positional exam no dominant masses or nodules of concern Left axilla: No adenopathy of concern Assessment and Plan Assessment: Impression: Patient no evidence of recurrent right breast DCIS Has completed radiation therapy secondary to thymoma as well as right breast cancer Patient did not have any chemotherapy for thymoma or breast cancer Patient is on an anti-estrogen therapy Plan: 1. repeat mammogram right breast 6 months 2. bilateral mammogram in [address] of the chest in 6 months 4. appointment pulmonary 5. PET scan had been done results pending CC: Dr. Braxton
== END ==
LOC: WWCWWP 10:38
PROVIDERS: ATTEND Surgery
DX: D49.89 Neoplasm of unspecified behavior of other specified sites (principal); F17.210 Nicotine dependence, cigarettes, uncomplicated; Z79.890 Hormone replacement therapy; Z85.3 Personal history of malignant neoplasm of breast

== ENCOUNTER → 2022-06-15 | Outpatient (CLI) | payer BC ==
--- NOTE | 2022-06-15 08:52 | CT ---
EXAMINATION TYPE: CT chest w con DATE OF EXAM: 06/15/2022 COMPARISON: 11/27/2021 HISTORY: Follow up of breast and thymus cancer CT DLP: 471.9 mGycm Automated exposure control for dose reduction was used. CONTRAST: CT scan of the chest is performed with IV Contrast, patient injected with 70 mL of Isovue 300. FINDINGS: LUNGS: Previously noted areas of scattered groundglass infiltrate within the left lung and right lung base no new areas of infiltrate. No distinct pulmonary nodule or mass. Mild of parenchymal scarring in the region of the lingula. As well as subpleural areas of reticulations have improved considerably . There is a near complete resolution noted MEDIASTINUM: There are no greater than 1 cm hilar or mediastinal lymph nodes. No pericardial effusi on is seen. Thoracic aorta is of normal caliber. The heart is not enlarged. UPPER ABDOMEN: No significant abnormality appreciated. OTHER: No additional significant abnormality is seen. IMPRESSION: 1. Interval resolution of previously noted groundglass nodules in the subpleural reticulations throug hout the left lung and right lung base. No concerning nodules seen. No evidence for airspace consolid ation at this time.
== END | disposition home or self-care (01) ==
LOC: RADCTMAIN 07:30
PROVIDERS: ATTEND Surgery
DX: C37 Malignant neoplasm of thymus (principal)
CPT/HCPCS: 71260; Q9967

== ENCOUNTER → 2022-12-20 | Outpatient (CLI) | payer BC ==
[2022-12-20 09:04] VITALS: BP 152/95; PULSE 90; RESP 18; TEMP 97.8
--- NOTE | 2022-12-20 09:51 | P.PN ---
Subjective Progress Note Date: 12/20/22 DCIS surveillence; Kecia stage IIb thymoma Atypical lobular hyperplasia right breast on stereo biopsy Ginger is a 55 year old white female seen in consultation for Dr. Braxton regarding a radiographic abnormality of the right breast. She underwent a bilateral screening mammogram on for which additional views of the right [place] [address]. These reveal a subtle group of microcalcifications in the upper-outer quadrant of the right breast for which stereo biopsy was recommended. She does not feel any lumps masses or nodules in her breast. She is not complaining of the nipple discharge or skin changes. She is not complaining of any trauma or infection in the breast. She has never had any surgery of the breast. She underwent a stereotactic core biopsy on . Pathology revealed lobular neoplasia, ALH/LCIS, as well as an intraductal papilloma. She subsequently underwent right breast needle localization on 3220 which revealed multifocal low-grade ductal carcinoma in situ her margins were negative. She then underwent radiation therapy and completed radiation therapy. In the course of radiation therapy she was diagnosed with a thymoma. She underwent a resection of the thymoma on February 14, 2021. This was done at [facility] in [place], via a robotic procedure. She was told this was cancer. She completed radiation for this on 05-03-21. Has been oxygen dependent since that surgery for the thymoma. She was told she did not need chemotherapy for her breast. She is taking aromison, she is not having any symptoms related to this. She had a bilateral mammogram on 11-28-21 stable right breast 6 month follow up, left breast no abnormalities of concern. She is without any lumps masses or nodules in either breast. note from radiation oncology 12-01-21 reviewed 11-27-21 CT scan small residual soft tissue anterior mediastinum 1.5 x 2 cm. Some pleural nodularity along the left lung. This may be posttherapy changes versus infection versus early metastases. 12-20-22 At this time she is not complaining of any new lumps masses or nodules of concern in her breast. She had a bilateral mammogram performed on and which was benign BIRADS 2. This was personally reviewed. In addition she had a computed tomography scan of her chest performed on 322 which showed interval resolution of groundglass nodules in the subpleural reticulations throughout the left lung and right lung base. No concerning nodules were seen. No evidence of airspace consolidation. She is continuing on Aromasin at this time, she was having hot flashes but was given medication for these and these have decreased. She remains oxygen dependent since treatment of the thymoma. Note from Dr. Segura [id number] reviewed Caffeine: coffee 3 cups/day; now down to 2 cups/day Nicotine: Half a pack per day for 33 years/ stopped smoking in 2020 chocolate: Occasional Hormones: none Family history: Sister: Breast cancer, bilateral from this, in her 60's sister: cancer breast, of this 54 years old sister: breast cancer 3sisters total breast cancer paternal aunt: cancer ? type Hormonal History: menarche: 11 1 miscarriage, first born at 16, breast fed: no menopause: 47 BCP: none hormones: none Surgical history: Right breast lumpectomy thymectomy Medical history: thymoma Social History: smoke: 1/2 PPD/33 years alcohol: none drugs: none - Constitutional Constitutional: Denies chills, Denies fever - EENT Eyes: denies blurred vision, denies pain Ears: deny: decreased hearing, tinnitus Ears, nose, mouth and throat: Reports headache, Denies sore throat - Breasts Breasts: bilateral: as per HPI - Cardiovascular Cardiovascular: Denies chest pain, Denies shortness of breath - Respiratory Comment: smoker - Gastrointestinal Gastrointestinal: Denies abdominal pain, Denies diarrhea, Denies nausea, Denies vomiting - Genitourinary (Female) Genitourinary: Denies dysuria, Denies hematuria - Menstruation Menstruation: Reports postmenopausal - Musculoskeletal Musculoskeletal: Denies myalgias - Integumentary Integumentary: Denies pruritus, Denies rash - Neurological Neurological: Denies numbness, Denies weakness - Psychiatric Psychiatric: Denies anxiety, Denies depression - Endocrine Endocrine: Denies fatigue, Denies weight change - Hematologic/Lymphatic Comment: none - Allergic/Immunologic Allergic/Immunologic: Reports seasonal allergies Objective - Vital Signs Vital signs: Vital Signs Temp 97.8 F 12/20/22 09:01 Pulse 90 12/20/22 09:01 Resp 18 12/20/22 09:01 BP 152/95 12/20/22 09:01 Pulse Ox 100 12/20/22 09:01 FiO2 Intake & Output 03/29/23 03/30/23 03/30/23 18:59 06:59 18:59 Weight 84.368 kg - Constitutional General appearance: Present: cooperative - EENT Eyes: Present: EOMI ENT: Present: hearing grossly normal - Neck Neck: Present: normal ROM - Respiratory Respiratory: bilateral: CTA - Cardiovascular Rhythm: regular Heart sounds: normal: S1, S2 - Gastrointestinal General gastrointestinal: Present: soft - Integumentary Integumentary: Present: normal turgor - Musculoskeletal Musculoskeletal: Present: gait normal - Psychiatric Psychiatric: Present: A&O x's 3, appropriate affect, intact judgment & insight - Additional findings Additional findings: Breast Exam: BRA: sports bras X large inspection: well healed scar right breast palpation: Breasts: right: Multiple positional exam post radiation and postsurgical changes no dominant masses or nodules of concern no evidence of recurrent disease Right axilla: No adenopathy of concern Left breast: Multiple positional exam no dominant masses or nodules of concern Left axilla: No adenopathy of concern Assessment and Plan Assessment: Impression: Patient no evidence of recurrent right breast DCIS Has completed radiation therapy secondary to thymoma as well as right breast cancer Patient did not have any chemotherapy for thymoma or breast cancer Patient is on an anti-estrogen therapy Chest CT stable repeat as per radiation oncology Plan: 1. repeat mammogram 1 year 2. follow up in 6 months CC: Dr. Braxton
== END ==
LOC: WWCWWP 08:54
PROVIDERS: ATTEND Surgery
DX: C50.911 Malignant neoplasm of unspecified site of right female breast (principal); R92.8 Other abnormal and inconclusive findings on diagnostic imaging of breast; C37 Malignant neoplasm of thymus

== ENCOUNTER → 2023-06-14 | Outpatient (CLI) | payer BC ==
--- NOTE | 2023-06-14 10:42 | CT ---
EXAMINATION TYPE: CT chest w con DATE OF EXAM: 06/14/2023 COMPARISON: 06/15/2022. HISTORY: possible lung nodule CT DLP: 464.7 mGycm Automated exposure control for dose reduction was used. TECHNIQUE: CT scan of the chest is performed with IV Contrast, patient injected with 100 mL of Isovue 300. MIP Images are created on CT scanner and reviewed. 3D reconstructed images are created on an independent workstation and reviewed. FINDINGS: Mediastinum and Sangeetha: There is no axillary, mediastinal or hilar lymphadenopathy. Pleural and Pericardial spaces: There are no pleural or pericardial effusions. Upper Abdomen: The visualized upper abdomen is unremarkable. Cardiovascular: There is normal in size without congestive there is mild vascular calcification aorti c arch without evidence of aneurysmal dilation or dissection. Mild patchy coronary artery calcificati ons are seen. Pulmonary Artery: There are no central pulmonary arterial abnormalities. The examination was not per formed to evaluate for pulmonary embolism. Lung Parenchyma and Airways: The lungs are clear. Bones: No fracture or aggressive osseous lesion. IMPRESSION: 1. No acute abnormality in the chest.
== END | disposition home or self-care (01) ==
LOC: RADCTMAIN 09:35
PROVIDERS: ATTEND Radiology Radiation Oncology
DX: C37 Malignant neoplasm of thymus (principal); J44.9 Chronic obstructive pulmonary disease, unspecified; D15.0 Benign neoplasm of thymus; F17.210 Nicotine dependence, cigarettes, uncomplicated; Z86.000 Personal history of in-situ neoplasm of breast; Z92.3 Personal history of irradiation
CPT/HCPCS: 71260; Q9967

== ENCOUNTER → 2023-09-25 | Outpatient (CLI) | payer BC ==
--- NOTE | 2023-09-25 11:57 | P.SLEEP ---
History of Present Illness DATE: 09/25/2023 CONSULTATION/NEW PATIENT EVALUATION HISTORY OF PRESENT ILLNESS/SLEEP-WAKE EVALUATION: 57-year-old lady had been ev aluated in the sleep center for possible obstructive sleep apnea hypopnea syndrome. SLEEP SCHEDULE: Usually sleep schedule from 9 PM to 5:15 AM. FALLING ASLEEP: Sometimes patient has difficulties with falling asleep. DURING SLEEP: Patient snores and wakes up from sleep 3 times with nocturia. No history of hypnogogical hallucinations, sleep paralysis, or cataplexy. DURING THE DAY/WAKE STATE: Patient feels tiredness and sleepiness during the day. Kinards sleepiness scale is 3. Patient doesn't take naps. PAST MEDICAL HISTORY: COPD, hypertension, hyperlipidemia, back problems, status post surgical treatment of right breast cancer and thymoma of the chest, lung problems secondary to multiple radiation therapy. PAST SURGICAL HISTORY: Surgical treatment for right breast cancer and thymoma of the chest and multiple radiation therapy. MEDICATIONS: Albuterol, ipratropium, triamcinolone spray, propranolol 80 mg once a day, metoprolol 50 mg once a day, atorvastatin 40 mg once a day, tramadol 50 mg twice a day, amitriptyline 10 mg at bedtime, O2 supplement 2 L/m 24 hours per day. SOCIAL HISTORY: positive for smoking 1 pack a day for 20 years quit in 2020, alcohol consumption occasional. FAMILY HISTORY: Heart problems. REVIEW OF SYSTEMS: Snoring, multiple awakenings from sleep. No fevers. No double vision. No recent chest pain. No shortness of breath. No abdominal pain. No ble eding episodes. No blood in urine. No seizure episodes. PHYSICAL EXAMINATION: GENERAL: A pleasant patient without any distress. VITAL SIGNS: BP 156/72, HR 96, RR 16, weight 190 pounds, height 5 foot 0 inches, body mass index 36.9. HEENT: PERRLA, EOMI. Evaluation of oropharynx showed tongue protrudes midline, low position of soft palate Mallampati 4. NECK: Supple. No JVD. Thyroid is not palpable. 17 inches in circumference. LUNGS: Clear to percussion and to auscultation. Good air exchange. No wheezing or rhonchi. HEART: S1, S2 regular. No murmurs, gallops or rubs. ABDOMEN: Soft and nontender. Bowel sounds are present. No organomegaly appreciated. EXTREMITIES: No clubbing or cyanosis. TRANSACTION COORDINATOR: Awake, alert, and oriented x3. Cranial nerves 2 to 7 intact. There is no fasciculation or atrophy noted. No focal deficits observed. ASSESSMENT: 1. Snoring, multiple awakenings from sleep, extremely low position of soft palate Mallampati 4, wide neck 17 inches in circumference, tiredness and sleepiness during the day. Obstructive sleep apnea hypopnea syndrome. 2. Obesity, BMI 36.9. 3. Hypertension. 4. COPD. 5 lung problems secondary to multiple radiation treatment on O2 supplement 2 L/m 24 hours a day. 6 . History of right breast cancer, status post surgical treatment and multiple radiation treatment. 7. History of thymoma on the chest, status post surgical and multiple radiation treatment. 8. Hyperlipidemia. 9 . Back problems. PLAN: 1. Home sleep apnea test for evaluation of patient's breathing during sleep. Patient request home sleep apnea test because she has to help her , who has vision problems. 2. CPAP/BiPAP titration if sleep study confirms obstructive sleep apnea- hypopnea syndrome. 3. Preferable position during sleep on the side. 4. No driving if patient feels any sleepiness. Patient is aware of civil and criminal liability for unsafe driving. 5. Sleep hygiene with regular sleep time for at least 7.5-8 hours. 6. Watching and losing weight. Thank you very much for referring this patient for consultation. Sincerely, Chemo Mendoza MD, PhD, FAASM. Diplomat of [place] [employer], Sleep Medicine Board by [place] [employer] [place] [employer] [facility] Supervisor of [facility] Past Medical History Past Medical History: COPD, GERD/Reflux, Hypertension Additional Past Medical History / Comment(s): migraines; "leaky heart valve"; DCIS of right breast; thymoma 03/17/2021 History of Any Multi-Drug Resistant Organisms: None Reported Past Surgical History: No Surgical Hx Reported Additional Past Surgical History / Comment(s): colonoscopy 08/15/20; RT breast lumpectomy on 11/22/2020 with adjuvant radiotherapy; Past Anesthesia/Blood Transfusion Reactions: No Reported Reaction Past Psychological History: No Psychological Hx Reported Smoking Status: Former smoker Past Alcohol Use History: None Reported Additional Past Alcohol Use History / Comment(s): Started smoking at age 19 and quit at age 55 on 03/16/21 Past Drug Use History: None Reported - Past Family History Father Family Medical History: Coronary Artery Disease (CAD) Additional Family Medical History / Comment(s): triple bypass Mother Family Medical History: Coronary Artery Disease (CAD) Additional Family Medical History / Comment(s): triple bypass Sister(s) Family Medical History: Cancer Additional Family Medical History / Comment(s): breast cancer Medications and Allergies Home Medications Medication Instructions Recorded Confirmed Type Butalbital/Aspirin/Caffeine 1 tab PO Q4H PRN 08/05/20 06/21/23 History [Mycpfj-Ebqbvaz-Loowvive 50-325-40 mg] Celecoxib [CeleBREX] 200 mg PO QAM PRN 11/16/20 06/21/23 History Metoprolol Tartrate [Lopressor] 50 mg PO QAM 11/16/20 06/21/23 History Exemestane [Aromasin] 25 mg PO QAM 03/16/21 06/21/23 History Cholecalciferol [Vitamin D3 (25 25 mcg PO DAILY 06/09/21 06/21/23 History Mcg = 1000 Iu)] Allergies Allergy/AdvReac Type Severity Reaction Status Date / Time No Known Allergies Allergy Verified 06/21/23 14:56 Sleep Note - Sleep Note Sleep Note: Temperature: Pulse Rate: Respiratory Rate: Blood Pressure: SpO2: Height: Weight: BMI: Neck Circumference:
== END ==
LOC: 3 N SLEEP 10:19
PROVIDERS: ATTEND Internal Medicine
DX: G47.33 Obstructive sleep apnea (adult) (pediatric) (principal); R06.83 Snoring; E66.9 Obesity, unspecified; I10 Essential (primary) hypertension; J44.9 Chronic obstructive pulmonary disease, unspecified; Z85.3 Personal history of malignant neoplasm of breast; C37 Malignant neoplasm of thymus; E78.5 Hyperlipidemia, unspecified; Z92.3 Personal history of irradiation; Z79.899 Other long term (current) drug therapy
CPT/HCPCS: 99211

== ENCOUNTER → 2023-12-18 | Outpatient (CLI) | payer BC ==
--- NOTE | 2023-12-18 10:09 | MM ---
Reason for Exam: Hx of breast cancer, conservation therapy. Last screening mammogram was performed 12 month(s) ago. Patient History: Menarche at age 11. First Full-Term at age 16. Postmenopausal. Patient has history of breast feeding. Breast cancer, right, age 55. Previous chest radiation therapy at age 56. 11/22/2020, Lumpectomy on the Right side. 11/22/2020, Malignant Core Biopsy on the right side. 09/01/2020, High risk Core Biopsy on the right side. Maternal cousin had breast cancer, age 30. Sister had breast cancer. Prior Study Comparison: 07/19/2020 Screening Mammogram, [facility]. 05/31/2021 Right Diagnostic Mammogram, [facility]. 11/28/2021 Bilateral Diagnostic Mammogram, [facility]. 12/03/2022 Bilateral MG diagnostic mammo w CAD PATRICA, [facility]. Tissue Density: There are scattered areas of fibroglandular density. Findings: Analyzed By CAD. Pattern is stable. Surgical clips from prior lumpectomy on the right breast. There is developing spherical calcification on the right. No suspicious calcifications are present in the breasts. Findings are otherwise stable from comparison No suspicious groups of microcalcifications, spiculated or lobular masses, architectural distortion or other secondary signs of malignancy are mammographically apparent. Overall Assessment: Benign, BI-RAD 2 Management: Diagnostic Mammogram of both breasts in 1 year. A negative mammogram report should not preclude additional follow up of suspicious palpable abnormalities. Patient should continue monthly self breast exam. A clinical breast exam by your physician is recommended on an annual basis and results should be correlated with mammographic findings. Electronically signed and approved by: Kumar Mckinney D.O. Radiologis
== END | disposition home or self-care (01) ==
LOC: RADMAMWWP 09:25
PROVIDERS: ATTEND Surgery
DX: R92.323 Mammographic fibroglandular density, bilateral breasts (principal); Z85.3 Personal history of malignant neoplasm of breast; Z78.0 Asymptomatic menopausal state
CPT/HCPCS: 77062; 77066

== ENCOUNTER → 2024-01-09 | Outpatient (CLI) | payer BC ==
[2024-01-09 10:42] VITALS: BP 134/82; PULSE 97; RESP 18; TEMP 98
--- NOTE | 2024-01-09 10:50 | P.PN ---
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 Braxton regarding a radiographic abnormality of the right breast. She underwent a bilateral screening mammogram on for which additional views of the right breast were recommended. These were performed on . These reveal a subtle group of microcalcifications in the upper-outer quadrant of the right breast for which stereo biopsy was recommended. She does not feel any lumps masses or nodules in her breast. She is not complaining of the nipple discharge or skin changes. She is not complaining of any trauma or infection in the breast. She has never had any surgery of the breast. She underwent a stereotactic core biopsy on . Pathology revealed lobular neoplasia, ALH/LCIS, as well as an intraductal papilloma. She subsequently underwent right breast needle localization on 3220 which revealed multifocal low-grade ductal carcinoma in situ her margins were negative. She then underwent radiation therapy and completed radiation therapy. In the course of radiation therapy she was diagnosed with a thymoma. She underwent a resection of the thymoma on February 14, 2021. This was done at [facility] in [place], via a robotic procedure. She was told this was cancer. She completed radiation for this on 05-03-21. Has been oxygen dependent since that surgery for the thymoma. She was told she did not need chemotherapy for her breast. She is taking aromison, she is not having any symptoms related to this. She had a bilateral mammogram on 11-28-21 stable right breast 6 month follow up, left breast no abnormalities of concern. She is without any lumps masses or nodules in either breast. note from radiation oncology 12-01-21 reviewed 11-27-21 CT scan small residual soft tissue anterior mediastinum 1.5 x 2 cm. Some pleural nodularity along the left lung. This may be posttherapy changes versus infection versus early metastases. 12-20-22 At this time she is not complaining of any new lumps masses or nodules of concern in her breast. She had a bilateral mammogram performed on and which was benign BIRADS 2. This was personally reviewed. In addition she had a computed tomography scan of her chest performed on which showed interval resolution of ground glass nodules in the subpleural reticulations throughout the left lung and right lung base. No concerning nodules were seen. No evidence of airspace consolidation. She is continuing on Aromasin at this time, she was having hot flashes but was given medication for these and these have decreased. She remains oxygen dependent since treatment of the thymoma. Note from Dr. Segura [id number] reviewed 06-21-23 DCIS right breast Thymoma Maskoka stage IIB Note 12-23-22 radiation oncology reviewed Discontinuing on Aromasin. bilateral mammogram 12-03-22 BIRAD [address] She had last chest CT 06-14-23; did not show any acute abnormality in the chest. She is going to follow this with Dr. Ramey as well as Dr. Braxton and Dr. Segura. She is not complaining of any lumps masses or nodules of concern in either breast. She remains oxygen dependent since treatment of the thymoma, following with Dr. Ramey on Jun 26 01-09-24 Bilateral mammogram on 12-18-23 BIRAD 2 note medical oncology reviewed 08-09-23 note radiation oncology reviewed 06-26-23 She is not complaining of any new lumps masses or nodules of concern in either breast. She is oxygen dependent since she had the thymoma removed. Caffeine: coffee 3 cups/day; now down to 2 cups/day Nicotine: Half a pack per day for 33 years/ stopped smoking in 2020 chocolate: Occasional Hormones: none Family history: Sister: Breast cancer, bilateral from this, in her 60's sister: cancer breast, of this 54 years old sister: breast cancer 3sisters total breast cancer paternal aunt: cancer ? type Hormonal History: menarche: 11 1 miscarriage, first born at 16, breast fed: no menopause: 47 BCP: none hormones: none Surgical history: Right breast lumpectomy thymectomy Medical history: thymoma Social History: smoke: 1/2 PPD/33 years alcohol: none drugs: none - Constitutional Constitutional: Denies chills, Denies fever - EENT Eyes: denies blurred vision, denies pain Ears: deny: decreased hearing, tinnitus Ears, nose, mouth and throat: Reports headache, Denies sore throat - Breasts Breasts: bilateral: as per HPI - Cardiovascular Cardiovascular: Denies chest pain, Denies shortness of breath - Respiratory Comment: smoker - Gastrointestinal Gastrointestinal: Denies abdominal pain, Denies diarrhea, Denies nausea, Denies vomiting - Genitourinary (Female) Genitourinary: Denies dysuria, Denies hematuria - Menstruation Menstruation: Reports postmenopausal - Musculoskeletal Musculoskeletal: Denies myalgias - Integumentary Integumentary: Denies pruritus, Denies rash - Neurological Neurological: Denies numbness, Denies weakness - Psychiatric Psychiatric: Denies anxiety, Denies depression - Endocrine Endocrine: Denies fatigue, Denies weight change - Hematologic/Lymphatic Comment: none - Allergic/Immunologic Allergic/Immunologic: Reports seasonal allergies Objective - Vital Signs Vital signs: Vital Signs Temp 98 F 01/09/24 10:33 Pulse 97 01/09/24 10:33 Resp 18 01/09/24 10:33 BP 134/82 01/09/24 10:33 Pulse Ox 95 01/09/24 10:33 FiO2 Intake & Output 01/08/24 01/09/24 01/09/24 18:59 06:59 18:59 Weight 88.904 kg - Constitutional General appearance: Present: cooperative - EENT Eyes: Present: EOMI ENT: Present: hearing grossly normal - Neck Neck: Present: normal ROM - Respiratory Respiratory: bilateral: CTA - Cardiovascular Rhythm: regular Heart sounds: normal: S1, S2 - Gastrointestinal General gastrointestinal: Present: soft - Integumentary Integumentary: Present: normal turgor - Musculoskeletal Musculoskeletal: Present: gait normal - Psychiatric Psychiatric: Present: A&O x's 3, appropriate affect, intact judgment & insight - Additional findings Additional findings: Breast Exam: BRA: sports bras X large inspection: well healed scar right breast palpation: Breasts: right: Multiple positional exam post radiation and postsurgical changes no dominant masses or nodules of concern no evidence of recurrent disease Right axilla: No adenopathy of concern Left breast: Multiple positional exam no dominant masses or nodules of concern Left axilla: No adenopathy of concern Assessment and Plan Assessment: Impression: Patient no evidence of recurrent right breast DCIS Has completed radiation therapy secondary to thymoma as well as right breast cancer Patient did not have any chemotherapy for thymoma or breast cancer Patient is on an anti-estrogen therapy/aromison Chest CT stable repeat as per radiation oncology last CT 06-14-23 Plan: 1. repeat mammogram 1 year 2. continue aromasin 3. follow up radiation and medical oncology 4. follow up in 6 months for exam 5. follow up sooner any concerns CC: Dr. Braxton
== END ==
LOC: WWCWWP 09:14
PROVIDERS: ATTEND Surgery
DX: R92.0 Mammographic microcalcification found on diagnostic imaging of breast (principal); R92.8 Other abnormal and inconclusive findings on diagnostic imaging of breast; D05.11 Intraductal carcinoma in situ of right breast; N60.91 Unspecified benign mammary dysplasia of right breast; R91.8 Other nonspecific abnormal finding of lung field; Z92.3 Personal history of irradiation; Z99.81 Dependence on supplemental oxygen; Z80.3 Family history of malignant neoplasm of breast; Z87.891 Personal history of nicotine dependence

== ENCOUNTER → 2024-06-15 | Outpatient (CLI) | payer BC ==
--- NOTE | 2024-06-15 11:31 | CTL ---
EXAMINATION TYPE: CT Low Dose Lung DATE OF EXAM ORDERED: 06/15/2024 HISTORY: . Low Dose CT Lung Screening CT DLP: [address] CTDI: 2.57 mGy IV CONTRAST USED: None. SCREENING VISIT: First visit COMPARISON: 06/14/2023 TECHNIQUE: Low dose computed tomography scan was performed through the chest at 1 millimeter thick se ctions and reconstructed images in the coronal plane at [address] DIAGNOSTIC QUALITY: Satisfactory FINDINGS: LUNG NODULES: Not presentLeft lung: no nodules identified.Right lung: no nodules identified. LUNGS: COPD: Severity: None Fibrosis: Severity:None Lymph nodes: None Other findings: None RIGHT PLEURAL SPACE: Effusion: None Calcification: None Thickening: None Pneumothorax: None LEFT PLEURAL SPACE: Effusion: None Calcification: None Thickening: None Pneumothorax: None HEART: Heart Size: Mildly enlarged Coronary calcification: Mild Pericardial effusion: None OTHER FINDINGS: Upper abdomen: No significant abnormality Bony thorax: Degenerative changes Supraclavicular region: No significant abnormalityOther: No significant abnormalityI IMPRESSION: No distinct pulmonary nodularity identified. FOLLOW UP CT CHEST RECOMMENDATION: Follow-up screening in one year CT LUNG RAD: LUNG RAD CATEGORY 1 negative [facility] Mika Mejia, , 06/15/2024 11:28 AM
== END | disposition home or self-care (01) ==
LOC: RADCTMAIN 10:41
PROVIDERS: ATTEND Family Medicine
DX: Z12.2 Encounter for screening for malignant neoplasm of respiratory organs (principal); Z87.891 Personal history of nicotine dependence
CPT/HCPCS: 71271

== ENCOUNTER → 2024-07-31 | Outpatient (CLI) | payer BC ==
[2024-07-31 12:28] VITALS: BP 135/85; PULSE 88; RESP 18; TEMP 97.7
--- NOTE | 2024-07-31 12:33 | P.PN ---
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 Braxton regarding a radiographic abnormality of the right breast. She underwent a bilateral screening mammogram on for which additional views of the right breast were recommended. These were performed on . These reveal a subtle group of microcalcifications in the upper-outer quadrant of the right breast for which stereo biopsy was recommended. She does not feel any lumps masses or nodules in her breast. She is not complaining of the nipple discharge or skin changes. She is not complaining of any trauma or infection in the breast. She has never had any surgery of the breast. She underwent a stereotactic core biopsy on . Pathology revealed lobular neoplasia, ALH/LCIS, as well as an intraductal papilloma. She subsequently underwent right breast needle localization on 3220 which revealed multifocal low-grade ductal carcinoma in situ her margins were negative. She then underwent radiation therapy and completed radiation therapy. In the course of radiation therapy she was diagnosed with a thymoma. She underwent a resection of the thymoma on February 14, 2021. This was done at [facility] in [place], via a robotic procedure. She was told this was cancer. She completed radiation for this on 05-03-21. Has been oxygen dependent since that surgery for the thymoma. She was told she did not need chemotherapy for her breast. She is taking aromison, she is not having any symptoms related to this. She had a bilateral mammogram on 11-28-21 stable right breast 6 month follow up, left breast no abnormalities of concern. She is without any lumps masses or nodules in either breast. note from radiation oncology 12-01-21 reviewed 11-27-21 CT scan small residual soft tissue anterior mediastinum 1.5 x 2 cm. Some pleural nodularity along the left lung. This may be posttherapy changes versus infection versus early metastases. 12-20-22 At this time she is not complaining of any new lumps masses or nodules of concern in her breast. She had a bilateral mammogram performed on 313 [id number] which was benign BIRADS 2. This was personally reviewed. In addition she had a computed tomography scan of her chest performed on which showed interval resolution of ground glass nodules in the subpleural reticulations throughout the left lung and right lung base. No concerning nodules were seen. No evidence of airspace consolidation. She is continuing on Aromasin at this time, she was having hot flashes but was given medication for these and these have decreased. She remains oxygen dependent since treatment of the thymoma. Note from Dr. Segura [id number] reviewed 06-21-23 DCIS right breast Thymoma Maskoka stage IIB Note 12-23-22 radiation oncology reviewed Discontinuing on Aromasin. bilateral mammogram 12-03-22 BIRAD [address] She had last chest CT 06-14-23; did not show any acute abnormality in the chest. She is going to follow this with Dr. Ramey as well as Dr. Braxton and Dr. Segura. She is not complaining of any lumps masses or nodules of concern in either breast. She remains oxygen dependent since treatment of the thymoma, following with Dr. Ramey on Jun 26 01-09-24 She underwent a bilateral screening mammogram on [id number] for which additional views of the right [place] [address]. These reveal a subtle group of microcalcifications in the upper-outer quadrant of the right breast for which stereo biopsy was recommended. She does not feel any lumps masses or nodules in her breast. She is not complaining of the nipple discharge or skin changes. She is not complaining of any trauma or infection in the breast. She has never had any surgery of the breast.She underwent a stereotactic core biopsy on . Pathology revealed lobular neoplasia, ALH/LCIS, as well as an intraductal papilloma. She subsequently underwent right breast needle localization on 3220 which revealed multifocal low-grade ductal carcinoma in situ her margins were negative. She then underwent radiation therapy and completed radiation therapy. In the course of radiation therapy she was diagnosed with a thymoma. She underwent a resection of the thymoma on February 14, 2021. This was done at [facility] in [place], via a robotic procedure. She was told this was cancer. She completed radiation for this on 05-03-21. Has been oxygen dependent since that surgery for the thymoma. She was told she did not need chemotherapy for her breast. She is taking aromison, she is not having any symptoms related to this. Bilateral mammogram on 12-18-23 BIRAD 2 note medical oncology reviewed 08-09-23 note radiation oncology reviewed 06-26-23 She is not complaining of any new lumps masses or nodules of concern in either breast. She is oxygen dependent since she had the thymoma removed. 07-31-24 She underwent a bilateral screening mammogram on [id number] for which additional views of the right breast were recommended. These were performed on . These reveal a subtle group of microcalcifications in the upper-outer quadrant of the right breast for which stereo biopsy was recommended. She does not feel any lumps masses or nodules in her breast. She is not complaining of the nipple discharge or skin changes. She is not complaining of any trauma or infection in the breast. She has never had any surgery of the breast.She underwent a stereotactic core biopsy on . Pathology revealed lobular neoplasia, ALH/LCIS, as well as an intraductal papilloma. She subsequently underwent right breast needle local ization on 3220 which revealed multifocal low-grade ductal carcinoma in situ her margins were negative. She then underwent radiation therapy and completed radiation therapy. In the course of radiation therapy she was diagnosed with a thymoma. She underwent a resection of the thymoma on February 14, 2021. This was done at [facility] in [place], via a robotic procedure. She was told this was cancer. She completed radiation for this on 05-03-21. Has been oxygen dependent since that surgery for the thymoma. She was told she did not need chemotherapy for her breast. She is taking aromison, she is not having any symptoms related to this. DCIS right breast Thymoma Maskoka stage IIB Bilateral mammogram on 12-18-[address] done of the chest Jun [address] Ramey told all OK Any new lumps masses or nodules of concern in either breast Caffeine: coffee 3 cups/day; now down to 2 cups/day Nicotine: Half a pack per day for 33 years/ stopped smoking in 2020 chocolate: Occasional Hormones: none Family history: Sister: Breast cancer, bilateral from this, in her 60's sister: cancer breast, of this 54 years old sister: breast cancer 3sisters total breast cancer paternal aunt: cancer ? type Hormonal History: menarche: 11 1 miscarriage, first born at 16, breast fed: no menopause: 47 BCP: none hormones: none Surgical history: Right breast lumpectomy thymectomy Medical history: thymoma Social History: smoke: 1/2 PPD/33 years alcohol: none drugs: none - Constitutional Constitutional: Denies chills, Denies fever - EENT Eyes: denies blurred vision, denies pain Ears: deny: decreased hearing, tinnitus Ears, nose, mouth and throat: Reports headache, Denies sore throat - Breasts Breasts: bilateral: as per HPI - Cardiovascular Cardiovascular: Denies chest pain, Denies shortness of breath - Respiratory Comment: smoker - Gastrointestinal Gastrointestinal: Denies abdominal pain, Denies diarrhea, Denies nausea, Denies vomiting - Genitourinary (Female) Genitourinary: Denies dysuria, Denies hematuria - Menstruation Menstruation: Reports postmenopausal - Musculoskeletal Musculoskeletal: Denies myalgias - Integumentary Integumentary: Denies pruritus, Denies rash - Neurological Neurological: Denies numbness, Denies weakness - Psychiatric Psychiatric: Denies anxiety, Denies depression - Endocrine Endocrine: Denies fatigue, Denies weight change - Hematologic/Lymphatic Comment: none - Allergic/Immunologic Allergic/Immunologic: Reports seasonal allergies Objective - Constitutional General appearance: Present: cooperative - EENT Eyes: Present: EOMI ENT: Present: hearing grossly normal - Neck Neck: Present: normal ROM - Respiratory Respiratory: bilateral: CTA - Cardiovascular Rhythm: regular Heart sounds: normal: S1, S2 - Integumentary Integumentary: Present: normal turgor - Musculoskeletal Musculoskeletal: Present: gait normal - Psychiatric Psychiatric: Present: A&O x's 3, appropriate affect, intact judgment & insight - Additional findings Additional findings: Breast Exam: BRA: sports bras X large inspection: well healed scar right breast palpation: Breasts: right: Multiple positional exam post radiation and postsurgical changes no dominant masses or nodules of concern no evidence of recurrent disease Right axilla: No adenopathy of concern Left breast: Multiple positional exam no dominant masses or nodules of concern Left axilla: No adenopathy of concern Assessment and Plan Assessment: Impression: Patient no evidence of recurrent right breast DCIS Has completed radiation therapy secondary to thymoma as well as right breast cancer Patient did not have any chemotherapy for thymoma or breast cancer Patient is on an anti-estrogen therapy/aromison Plan: 1. repeat mammogram November 2024 with appointment 2. continue aromasin 3. follow up radiation and medical oncology 4. follow up in 6 months for exam 5. follow up sooner any concerns CC: Dr. Braxton
== END ==
LOC: WWCWWP 11:34
PROVIDERS: ATTEND Surgery
DX: N60.91 Unspecified benign mammary dysplasia of right breast (principal); Z85.3 Personal history of malignant neoplasm of breast; Z80.3 Family history of malignant neoplasm of breast; Z87.891 Personal history of nicotine dependence; Z92.3 Personal history of irradiation

== ENCOUNTER → 2024-12-23 | Outpatient (CLI) | payer BC ==
--- NOTE | 2024-12-23 11:57 | MM ---
Reason for Exam: Follow-up at short interval from prior study. Last mammogram was performed 1 year(s) and 1 month(s) ago. Patient History: Menarche at age 11. First Full-Term at age 16. Postmenopausal. Patient has history of breast feeding. Breast cancer, right, age 55. Previous chest radiation therapy at age 56. 11/22/2020, Lumpectomy on the Right side. 11/22/2020, Malignant Core Biopsy on the right side. 09/01/2020, High risk Core Biopsy on the right side. Maternal cousin had breast cancer, age 30. Sister had breast cancer. Sister had breast cancer, age 52. Sister had breast cancer, age 50. Tissue Density: The breasts are heterogeneously dense, which may obscure small masses. Findings: Analyzed By CAD. Postoperative changes of right-sided lumpectomy without evidence for recurrent or residual mass. Traumatic oil cyst noted with mural calcification. There are no suspicious calcifications within either breast. Overall Assessment: Benign, BI-RAD 2 Management: Diagnostic Mammogram of both breasts in 1 year. . Results were given to the patient verbally at the time of exam. Patient should continue monthly self-breast exams. A clinical breast exam by your physician is recommended on an annual basis. This exam should not preclude additional follow-up of suspicious palpable abnormalities. Note on Martha scores and lifetime risk: 1. A Martha score greater than 3% is considered moderate risk. If this is the case, consider specialist referral to assess eligibility for a risk reducing agent. 2. If overall lifetime risk for the development of breast cancer is 20% or higher, the patient may qualify for future screening with alternating mammogram and breast MRI. [facility], , 12/23/2024 11:53 AM. Electronically signed and approved by: Pasquale Chen M.D. Radiologis
== END | disposition home or self-care (01) ==
LOC: RADMAMWWP 10:40
PROVIDERS: ATTEND Surgery
DX: R92.333 Mammographic heterogeneous density, bilateral breasts (principal); Z85.3 Personal history of malignant neoplasm of breast; Z78.0 Asymptomatic menopausal state; Z80.3 Family history of malignant neoplasm of breast
CPT/HCPCS: 77062; 77066

== ENCOUNTER → 2025-01-28 | Outpatient (CLI) | payer BC ==
[2025-01-28 10:31] VITALS: BP 130/75; PULSE 97; RESP 16; TEMP 97.8
--- NOTE | 2025-01-28 11:11 | P.PN ---
Subjective Progress Note Date: 01/28/25 Principal diagnosis: Grade III DCIS right breast 2020, Masoka stage IIB thymoma 202001-25-25 Principal diagnosis: Grade III DCIS right breast 2020, Masoka stage IIB thymoma 202006/21/23 DCIS surveillence; Masoka stage IIb thymoma Atypical lobular hyperplasia right breast on stereo biopsy Ginger is a 55 year old white female seen in consultation for Dr. Braxton regarding a radiographic abnormality of the right breast. She underwent a bilateral screening mammogram on for which additional views of the right breast were recommended. These were performed on . These reveal a subtle group of microcalcifications in the upper-outer quadrant of the right breast for which stereo biopsy was recommended. She does not feel any lumps masses or nodules in her breast. She is not complaining of the nipple discharge or skin changes. She is not complaining of any trauma or infection in the breast. She has never had any surgery of the breast. She underwent a stereotactic core biopsy on . Pathology revealed lobular neoplasia, ALH/LCIS, as well as an intraductal papilloma. She subsequently underwent right breast needle localization on 3220 which revealed multifocal low-grade ductal carcinoma in situ her margins were negative. She then underwent radiation therapy and completed radiation therapy. In the course of radiation therapy she was diagnosed with a thymoma. She underwent a resecti on of the thymoma on February 14, 2021. This was done at [facility] in [place], via a robotic procedure. She was told this was cancer. She completed radiation for this on 05-03-21. Has been oxygen dependent since that surgery for the thymoma. She was told she did not need chemotherapy for her breast. She is taking aromison, she is not having any symptoms related to this. She had a bilateral mammogram on 11-28-21 stable right breast 6 month follow up, left breast no abnormalities of concern. She is without any lumps masses or nodules in either breast. note from radiation oncology 12-01-21 reviewed 11-27-21 CT scan small residual soft tissue anterior mediastinum 1.5 x 2 cm. Some pleural nodularity along the left lung. This may be posttherapy changes versus infection versus early metastases. 12-20-22 At this time she is not complaining of any new lumps masses or nodules of concern in her breast. She had a bilateral mammogram performed on 313 and which was benign BIRADS 2. This was personally reviewed. In addition she had [place] [id number] which showed interval resolution of ground glass nodules in the subpleural reticulations throughout the left lung and right lung base. No concerning nodules were seen. No evidence of airspace consolidation. She is continuing on Aromasin at this time, she was having hot flashes but was given medication for these and these have decreased. She remains oxygen dependent since treatment of the thymoma. Note from Dr. Segura [id number] reviewed 06-21-23 DCIS right breast Thymoma Maskoka stage IIB Note 12-23-22 radiation oncology reviewed Discontinuing on Aromasin. bilateral mammogram 12-03-22 BIRAD [address] She had last chest CT 06-14-23; did not show any acute abnormality in the chest. She is going to follow this with Dr. Ramey as well as Dr. Braxton and Dr. Segura. She is not complaining of any lumps masses or nodules of concern in either breast. She remains oxygen dependent since treatment of the thymoma, following with Dr. Ramey on Jun 26 01-09-24 She underwent a bilateral screening mammogram on [id number] for which additional views of the right breast [place]. [place] [id number]. These reveal a subtle group of microcalcifications in the upper-outer quadrant of the right breast for which stereo biopsy was recommended. She does not feel any lumps masses or nodules in her breast. She is not complaining of the nipple discharge or skin changes. She is not complaining of any trauma or infection in the breast. She has never had any surgery of the breast.She underwent a stereotactic core biopsy on . Pathology revealed lobular neoplasia, ALH/LCIS, as well as an intraductal papilloma. She subsequently underwent right breast needle localization on 3220 which revealed multifocal low-grade ductal carcinoma in situ her margins were negative. She then underwent radiation therapy and completed radiation therapy. In the course of radiation therapy she was diagnosed with a thymoma. She underwent a resection of the thymoma on February 14, 2021. This was done at [facility] in [place], via a robotic procedure. She was told this was cancer. She completed radiation for this on 05-03-21. Has been oxygen dependent since that surgery for the thymoma. She was told she did not need chemotherapy for her breast. She is taking aromison, she is not having any symptoms related to this. Bilateral mammogram on 12-18-23 BIRAD 2 note medical oncology reviewed 08-09-23 note radiation oncology reviewed 06-26-23 She is not complaining of any new lumps masses or nodules of concern in either breast. She is oxygen dependent since she had the thymoma removed. 07-31-24 She underwent a bilateral screening mammogram on for which additional views of the right breast were recommended. These were performed on . These reveal a subtle group of microcalcifications in the upper-outer quadrant of the right breast for which stereo biopsy was recommended. She does not feel any lumps masses or nodules in her breast. She is not complaining of the nipple discharge or skin changes. She is not complaining of any trauma or infection in the breast. She has never had any surgery of the breast.She underwent a stereotactic core biopsy on . Pathology revealed lobular neoplasia, ALH/LCIS, as well as an intraductal papilloma. She subsequently underwent right breast needle localization on 3220 which revealed multifocal low-grade ductal carcinoma in situ her margins were negative. She then underwent radiation therapy and completed radiation therapy. In the course of radiation therapy she was diagnosed with a thymoma. She underwent a resection of the thymoma on February 14, 2021. This was done at [facility] in [place], via a robotic procedure. She was told this was cancer. She completed radiation for this on 05-03-21. Has been oxygen dependent since that surgery for the thymoma. She was told she did not need chemotherapy for her breast. She is taking aromison, she is not having any symptoms related to this. DCIS right breast Thymoma Maskoka stage IIB Bilateral mammogram on 12-18-[address] done of the chest Jun [address] Ramey told all OK Any new lumps masses or nodules of concern in either breast 01-28-2525 Grade III DCIS right breast 2020, Masoka stage IIB thymoma 2020 DCIS right breast 2020 Thymoma Maskoka stage IIB 2020 Note 08-07-24 Medical Oncology reviewed; continue aromasin bilateral mammogram 12-23-24 BIRAD 2, personally interpreted patient admited to hospital in 2024 with pneumonia for 7 days, also influenze A she is doing well at this time She is not complaining of any new lumps masses or nodules of concern in either breast Caffeine: coffee 3 cups/day; now down to 2 cups/day Nicotine: Half a pack per day for 33 years/ stopped smoking in 2020 chocolate: Occasional Hormones: none Family history: Sister: Breast cancer, bilateral from this, in her 60's sister: cancer breast, of this 54 years old sister: breast cancer 3sisters total breast cancer paternal aunt: cancer ? type Hormonal History: menarche: 11 1 miscarriage, first born at 16, breast fed: no menopause: 47 BCP: none hormones: none Surgical history: Right breast lumpectomy thymectomy Medical history: thymoma uses a walker Social History: smoke: 1/2 PPD/33 years alcohol: none drugs: none - Constitutional Constitutional: Denies chills, Denies fever - EENT Eyes: denies blurred vision, denies pain Ears: deny: decreased hearing, tinnitus Ears, nose, mouth and throat: Reports headache, Denies sore throat - Breasts Breasts: bilateral: as per HPI - Cardiovascular Cardiovascular: Denies chest pain, Denies shortness of breath - Respiratory Comment: smoker - Gastrointestinal Gastrointestinal: Denies abdominal pain, Denies diarrhea, Denies nausea, Denies vomiting - Genitourinary (Female) Genitourinary: Denies dysuria, Denies hematuria - Menstruation Menstruation: Reports postmenopausal - Musculoskeletal Musculoskeletal: Denies myalgias - Integumentary Integumentary: Denies pruritus, Denies rash - Neurological Neurological: Denies numbness, Denies weakness - Psychiatric Psychiatric: Denies anxiety, Denies depression - Endocrine Endocrine: Denies fatigue, Denies weight change - Hematologic/Lymphatic Comment: none - Allergic/Immunologic Allergic/Immunologic: Reports seasonal allergies Objective - Vital Signs Vital signs: Vital Signs Temp 97.8 F 01/28/25 10:29 Pulse 97 01/28/25 10:29 Resp 16 01/28/25 10:29 BP 130/75 01/28/25 10:29 Pulse Ox 94 L 01/28/25 10:29 FiO2 Intake & Output 01/27/25 01/28/25 01/28/25 18:59 06:59 18:59 Weight 91.172 kg - Constitutional General appearance: Present: cooperative - EENT Eyes: Present: EOMI ENT: Present: hearing grossly normal - Neck Neck: Present: normal ROM - Respiratory Respiratory: bilateral: CTA - Cardiovascular Rhythm: regular Heart sounds: normal: S1, S2 - Integumentary Integumentary: Present: normal turgor - Musculoskeletal Musculoskeletal: Present: gait normal - Psychiatric Psychiatric: Present: A&O x's 3, appropriate affect, intact judgment & insight - Additional findings Additional findings: Breast Exam: BRA: sports bra X large inspection: well healed scar right breast palpation: Breasts: right: Multiple positional exam post radiation and postsurgical changes no dominant masses or nodules of concern no evidence of recurrent disease Right axilla: No adenopathy of concern Left breast: Multiple positional exam no dominant masses or nodules of concern Left axilla: No adenopathy of concern Assessment and Plan Assessment: Impression: Grade III DCIS right breast 2020, Masoka stage IIB thymoma 2020 uses a wlaker Plan: bilateral mammogram in December 2025 with appointment follow up in 6 months continue aromasin/ follow up with Dr. Segura CC: Dr. Braxton, Dr. Segura
== END ==
LOC: WWCWWP 10:07
PROVIDERS: ATTEND Surgery
DX: D05.11 Intraductal carcinoma in situ of right breast (principal); N60.91 Unspecified benign mammary dysplasia of right breast

== ENCOUNTER → 2025-02-03 | Outpatient (CLI) | payer BC ==
--- NOTE | 2025-02-03 08:17 | BD ---
EXAMINATION TYPE: Axial Bone Density DATE OF EXAM: 02/03/2025 CLINICAL HISTORY: 59 years old Female. ICD-10 CODE: M81.0 osteopenia , Additional History: Height: 60 in Weight: 201 lbs FRAX RISK QUESTIONS: History of Fracture in Adulthood: yes lt wrist age 44 Secondary Osteoporosis: 3. Menopause before 45: yes age 44 RISK FACTORS HISTORY OF: History of Wrist Fracture: lt wrist age 44 EXAM MEASUREMENTS: Bone mineral densitometry was performed using the [employer] System. Bone mineral density as measured about the Lumbar spine is: ----- L1-L4(G/cm2): 1.047 T Score Values are as follows: ----- L1: -2.1 ----- L2: -1.5 ----- L3: -1.4 ----- L4: 0.1 ----- L1-L4: -1.1 Z Score Values are as follows: ----- L1: -1.9 ----- L2: -1.3 ----- L3: -1.3 ----- L4: 0.2 ----- L1-L4: -0.9 Bone mineral density has: Decreased -3.1% since study of: 01/28/2023 Bone mineral density about the R hip (g/cm2): 0.983 Bone mineral density about the L hip (g/cm2): 0.992 T Score values are as follows: -----R Neck: -1.3 -----L Neck: -1.8 -----R Total: -0.2 -----L Total: -0.1 Z Score values are as follows: -----R Neck: -0.7 -----L Neck: -1.2 -----R Total: 0.0 -----L Total: 0.1 Bone mineral density has: Increased 1.4% since study of: 01/28/2023 FRAX%s: The graph provided illustrates a 13.0% chance for a major osteoporotic fx and a 1.4% chance f or the hips probability for fx in 10 years time. IMPRESSION: Osteopenia (T Score between -2.5 and -1). There is slightly increased risk of fracture and the patient may be considered for treatment. Re-Screen 2-5 years. NOTE: T-SCORE=SD OF THE YOUNG ADULT MEAN. [facility], , 02/03/2025 8:15 AM
== END | disposition home or self-care (01) ==
LOC: RADBDWWP 07:21
PROVIDERS: ATTEND Internal Medicine Hematology & Oncology
DX: M81.0 Age-related osteoporosis without current pathological fracture (principal); M85.89 Other specified disorders of bone density and structure, multiple sites; D05.11 Intraductal carcinoma in situ of right breast; J44.9 Chronic obstructive pulmonary disease, unspecified; Z71.3 Dietary counseling and surveillance
CPT/HCPCS: 77080

== ENCOUNTER 2025-03-03 19:09 | Outpatient (CLI) | payer BC ==
--- NOTE | 2025-03-09 16:47 | P.PCN ---
Date of Procedure: 03/03/25 Operative Findings: Polysomnography report History This is a 59-year-old female patient, she has history of COPD with an FEV1 of 40 to 42% of predicted, chronic for dyspnea, chronic hypoxic respiratory failure, obesity with a BMI of 39. The patient was further suspected to have obstructive sleep apnea. She has snoring, sleep fragmentation and excessive hypersomnia and sleepiness. Based on that, the patient was offered a polysomnography Pertinent physical findings Weight is 190 pounds with a BMI of 36.9 Technical description The patient was studied using a standard complex polysomnography protocol that included recording of the Lead II EKG, Central, occipital and frontal EEG, right and left outer canthus EOG, submental EMG, right and left anterior tibialis EMG, respiratory airflow by thermocouple and or pressure/flow transducer, respiratory efforts by abdominal and thoracic PVDF belts, oxygen saturation by cable oximetry. Position by observation synchronized the PSG. Equipment used: [employer]. Sleep architecture The total recording duration was 450 minutes. The total sleep time was 275.5 minutes. The wake after sleep onset time was 136.5 minutes. The overall sleep efficiency was 61.2%. The latency to sleep onset was 25.5 minutes. The latency to REM sleep was 180.5 minutes. The sleep architecture was characterized by 31% stage I, 54.3% stage II, 0% stage III and a total of 14.7% REM sleep. The total arousal index was 49.4. Respiratory analysis The sleep study showed a total of 237 obstructive events of which 2 were obstructive apneas, 0 were mixed apneas at 135 were obstructive hypopneas. The resulting AHI was 48.1 consistent with severe obstructive sleep apnea. Oxygenation analysis The baseline pulse ox was 91% while awake. Lowest oxygen saturation was 69%. Noted oxygen was turned off during the study. The patient spent approximately 135 minutes of the sleep time below pulse ox of 89% discount for 30% of the overall recording time. Arousal events There was a total of 227 arousals with an index of 49.4. The respiratory arousal index was 20.3 Periodic limb movements The patient had a total of 236 periodic limb movement activity with an index of 51.4. In addition, there was a total of 4 periodic limb movement activity with arousals with an index of 0.9 Cardiac summary Average heart rate was 91 with a minimum heart rate of 80 and a maximum heart rate of 102. Assessment Severe symptomatic obstructive sleep apnea with an AHI of 48.1. Respiratory events were essentially in the form of obstructive hypopneas. Severe nocturnal oxygen desaturation with a minimum pulse ox of 69% Advanced COPD with an FEV1 of 40% of predicted Chronic hypoxic respiratory failure, maintained on home O2 Overlap of obstructive sleep apnea COPD Hypertension hyperlipidemia Breast cancer Thymoma Obesity with a BMI of 37.1 Plan Optimize COPD. Continue oxygen therapy. Proceed with in lab CPAP/BiPAP titration.
== END 2025-03-04 05:45 | disposition home or self-care (01) ==
LOC: 3 N SLEEP 19:09
PROVIDERS: ATTEND Internal Medicine Critical Care Medicine
DX: G47.33 Obstructive sleep apnea (adult) (pediatric) (principal); I10 Essential (primary) hypertension; E78.5 Hyperlipidemia, unspecified; C50.919 Malignant neoplasm of unspecified site of unspecified female breast; D49.89 Neoplasm of unspecified behavior of other specified sites; J44.9 Chronic obstructive pulmonary disease, unspecified; E66.812 Obesity, class 2; J96.11 Chronic respiratory failure with hypoxia; Z68.37 Body mass index [BMI] 37.0-37.9, adult
CPT/HCPCS: 95810